=== PATIENT | female | born 1955 | race Caucasian/White ===

== ENCOUNTER 2016-06-05 05:37 | Outpatient (CLI) | payer BC, OTHER ==
[~2016-06-05] VITALS: Ht 157.5 cm; Wt 77.1 kg
[~2016-06-05 05:37] MED LIST: ASP81TEC PO; ESTROGEN; LVT.1T PO; MED FOR CHOLESTEROL; MED FOR THYROID; PRAV80TA PO; [UNRECOGNIZED DRUG - CODE] PO
== END 2016-06-05 12:01 ==
LOC: PREOP 05:37
PROVIDERS: ATTEND Surgery
DX: Z01.818 Encounter for other preprocedural examination (principal); Z86.010 Personal history of colon polyps

== ENCOUNTER 2016-06-09 10:03 | Day surgery (SDC) | payer BC ==
[~2016-06-09] VITALS: Ht 157.5 cm; Wt 77.1 kg
[2016-06-09] MEDS ORDERED: NS IV 1000 ML 1,000 ML IV PRN (10:15)
[2016-06-09] MEDS ORDERED: LIDOCAINE JELLY 2% (XYLOCAINE) 5 ML TUBE MM PRN (10:15)
[2016-06-09 10:20] VITALS: BP 125/87
[2016-06-09] MEDS ORDERED: proPOfol 200 MG/20 ML (DIPRIVAN) VIAL IV ONE (11:11)
[2016-06-09] MEDS ORDERED: MIDAZOLAM 2 MG/2 ML (VERSED) VIAL ONE (11:12)
--- NOTE | 2016-06-09 11:18 | Progress Note-Pre Operative ---
Pre-Operative Progress Note H&P Reviewed The H&P was reviewed, patient examined and no changes noted. Date H&P Reviewed: Jun 09, 2016 Time H&P Reviewed: 11:18 Pre-Operative Diagnosis: history colon polyps NARESH KRUGER DO Jun 09, 2016 11:18 am
--- NOTE | 2016-06-09 11:59 | Discharge Inst-Simple/Standard ---
Discharge Inst-Standard Patient Instructions/Follow Up Plan of Care/Instructions/FU: Follow up with Dr. Guzman in 2-3 weeks. Activity as Tolerated: Yes Discharge Diet: No Restrictions EITAN CONNER APRN Jun 09, 2016 11:59
[2016-06-09 12:25] VITALS: BP 137/82
[2016-06-09 12:45] VITALS: BP 129/89
--- NOTE | 2016-06-09 12:47 | Progress Note-Post Operative ---
Post-Operative Progess Note Surgeon (s)/Medical Resident (s) Surgeon NARESH KRUGER DO Medical Resident: o Pre-Operative Diagnosis history colon polyps Post-Operative Diagnosis colon polyps Post-Op Procedure Note Date of Procedure: Jun 09, 2016 Name of Procedure Performed: colonoscopy hot bx polypectomy x 6 Description of the Procedure: see note Findings of the Procedure see note Anesthesia Type per mda Estimated blood loss (mL): 0 Specimen(s) collected/removed colon polyps NARESH KRUGER DO Jun 09, 2016 12:47 pm
[2016-06-09 12:50] VITALS: BP 129/89
--- NOTE | 2016-06-10 10:52 | PROCEDURE REPORT ---
PROCEDURE PHYSICIAN: NARESH GUZMAN DATE OF PROCEDURE: 06/09/2016 PREOPERATIVE DIAGNOSIS: History of polyps. POSTOPERATIVE DIAGNOSIS: Colon polyps. PROCEDURE: Colonoscopy with hot biopsy polypectomy x6. SURGEON: Dr. Guzman. ANESTHESIA: Per MDA. ESTIMATED BLOOD LOSS: None. COMPLICATIONS: None. INDICATIONS: The patient is a 60-year-old female with multiple polyps previously. She understands the risks and benefits of the procedure and wished to proceed with the procedure. Consent was signed on the chart. PROCEDURE: The patient was taken to the endoscopy suite, placed in left lateral recumbent position. Timeout was performed. Digital rectal exam was performed. There were no palpable polyps, masses, or ulcerations. The scope was inserted into the rectum and advanced all the way to the cecum with minimal difficulty. Prep was adequate. The scope was then slowly retracted back. There were no polyps, masses, or ulceration of the cecum, and descending colon. At the hepatic flexure, there is a larger polyp, which hot biopsy polypectomy was performed. The scope was then slowly retracted back into the transverse colon which another polyp was present which hot biopsy polypectomy was performed. The scope was continued to be slowly retracted back into the descending colon which another polyp was present, which hot biopsy polypectomy was performed. This was smaller in size. The scope was continued to be slowly retracted back into the sigmoid colon. There was another small polyp, which hot biopsy polypectomy was performed. In the distal sigmoid colon, there were 2 polyps present which hot biopsy polypectomy was performed on both of them. The scope was continued be slowly retracted back into the rectum where it was also retroflexed noting no other pathology. The scope was then returned to its normal position and slowly withdrawn until completely removed. The patient tolerated the procedure well without any complications. She was taken to recovery room in stable condition. RECOMMENDATIONS: The patient will follow-up on pathology. Due to the large number of polyps in recurring numbers, we will discuss possible gastroenterology consultation. I would recommend repeat colonoscopy in 3 to 6 months for reevaluation due to a significant number of polyps. Job ID: [id number] Dictated Date: 06/09/2016 13:59:55 Salesperson Hosiery Date: 06/10/2016 10:44:52 / tbk
--- OUTSIDE RECORDS SUMMARY | 2016-07-12 13:46 | XMS REPORT | Continuity of Care Document ---
Author Author [facility] Organization [facility] Address Unknown Phone Unavailable Allergies Active Description Code Type Severity Reaction Onset Reported/Identified Relationship to Patient Clinical Status Yes No Known Drug Allergies [id number] Drug Allergy Unknown N/ A 05/28/2015 Medications Problems Date Dx Coded Attending Type Code Diagnosis Diagnosed By 06/14/2013 DARLENE REY FACC, ANOOP FACP CCDS Ot 272.4 HYPERLIPIDEMIA NEC/NOS 06/14/2013 DARLENE REY FACC, ANOOP FACP CCDS Ot 305.1 TOBACCO USE DISORDER 06/14/2013 DARLENE REY FACC, ANOOP FACP CCDS Ot 414.01 CORONARY ATHEROSCLEROSIS OF [place] CORON 06/14/2013 DARLENE REY FACC, ANOOP FACP CCDS Ot 786.09 RESPIRATORY ABNORM NEC 06/14/2013 DARLENE REY FACC, ANOOP FACP CCDS Ot 786.59 CHEST PAIN NEC 06/14/2013 DARLENE REY FACC, ANOOP FACP CCDS Ot V17.3 FAM HX-ISCHEM HEART DIS 06/14/2013 DARLENE REY FACC, ANOOP FACP CCDS Ot V58.69 OTH MED,LT,CURRENT USE 07/16/2014 Ot 211.3 07/16/2014 Ot 569.0 07/16/2014 Ot V16.0 07/16/2014 Ot V76.51 02/07/2015 Ot 211.3 02/07/2015 Ot 569.0 02/07/2015 Ot V16.0 02/07/2015 Ot V76.51 05/24/2015 NARESH KRUGER DO Ot Z01.818 ENCOUNTER FOR OTHER PREPROCEDURAL EXAMIN 05/27/2015 NARESH KRUGER DO Ot Z01.818 05/28/2015 Ot 211.3 05/28/2015 Ot 569.0 05/28/2015 Ot V16.0 05/28/2015 Ot V76.51 05/28/2015 Ot V72.84 05/28/2015 NARESH KRUGER DO Ot K62.1 RECTAL POLYP 05/28/2015 NARESH KRUGER DO Ot K63.5 POLYP OF COLON 05/28/2015 NARESH KRUGER DO Ot K92.1 MELENA 06/05/2016 Ot 211.3 BENIGN NEOPLASM LG BOWEL 06/05/2016 Ot 569.0 ANAL RECTAL POLYP 06/05/2016 Ot V16.0 FAMILY HX-GI MALIGNANCY 06/05/2016 Ot V76.51 SCREEN MAL NEOP-COLON 06/05/2016 Ot V72.84 EXAM PRE-OPERATIVE NOS 06/05/2016 NARESH KRUGER DO Ot Z01.818 ENCOUNTER FOR OTHER PREPROCEDURAL EXAMIN 06/05/2016 NARESH KRUGER DO Ot Z86.010 PERSONAL HISTORY OF COLONIC POLYPS 06/08/2016 NARESH KRUGER DO Ot Z01.818 ENCOUNTER FOR OTHER PREPROCEDURAL EXAMIN 06/08/2016 NARESH KRUGER DO Ot Z86.010 PERSONAL HISTORY OF COLONIC POLYPS 06/08/2016 NARESH KRUGER DO Ot Z01.818 ENCOUNTER FOR OTHER PREPROCEDURAL EXAMIN 06/08/2016 NARESH KRUGER DO Ot Z86.010 PERSONAL HISTORY OF COLONIC POLYPS 06/09/2016 NARESH KRUGER DO Ot D12.4 BENIGN NEOPLASM OF DESCENDING COLON 06/09/2016 NARESH KRUGER DO Ot K63.5 POLYP OF COLON 06/27/2016 JACKSON KELLER APRN Ot F17.210 NICOTINE DEPENDENCE, CIGARETTES, UNCOMPL 06/27/2016 JACKSON KELLER APRN Ot K76.0 FATTY (CHANGE OF) LIVER, NOT ELSEWHERE C 06/27/2016 JACKSON KELLER [employer] OPERATOR Ot R10.11 RIGHT UPPER QUADRANT PAIN 06/27/2016 JACKSON KELLER [employer] OPERATOR Ot R10.13 EPIGASTRIC PAIN 06/30/2016 Ot 211.3 BENIGN NEOPLASM LG BOWEL 06/30/2016 Ot 569.0 ANAL RECTAL POLYP 06/30/2016 Ot V16.0 FAMILY HX-GI MALIGNANCY 06/30/2016 Ot V76.51 SCREEN MAL NEOP-COLON 06/30/2016 Ot V72.84 EXAM PRE-OPERATIVE NOS 07/01/2016 EITAN CONNER APRN Ot R10.11 RIGHT UPPER QUADRANT PAIN 07/08/2016 NWAGWUEITAN APRN Ot R10.11 RIGHT UPPER QUADRANT PAIN Procedures Results Test Result Range Complete blood count (CBC) with automated white blood cell (WBC) differential - 06/27/16 12:28 Blood leukocytes automated count (number/volume) 10.4 10*3/ uL 4.3-11.0 Blood erythrocytes automated count (number/volume) 4.89 10*6 /uL 4.35-5.85 Venous blood hemoglobin measurement (mass/volume) 14.8 g/dL 11.5-16.0 Blood hematocrit (volume fraction) 44 % 35-52 Automated erythrocyte mean corpuscular volume 90 [foz_us] 80-99 Automated erythrocyte mean corpuscular hemoglobin (mass per erythrocyte) 30 pg 25-34 Automated erythrocyte mean corpuscular hemoglobin concentration measurement ( mass/volume) 34 g/dL 32-36 Automated erythrocyte distribution width ratio 14.8 % 10.0-14.5 Automated blood platelet count (count/volume) 301 10*3/uL 130-400 Automated blood platelet mean volume measurement 9.4 [foz_us ] 7.4-10.4 Automated blood neutrophils/100 leukocytes 62 % 42-75 Automated blood lymphocytes/100 leukocytes 30 % 12-44 Blood monocytes/100 leukocytes 6 % 0-12 Automated blood eosinophils/100 leukocytes 2 % 0-10 Automated blood basophils/100 leukocytes 1 % 0-10 Blood neutrophils automated count (number/volume) 6.5 10*3 1.8-7.8 Blood lymphocytes automated count (number/volume) 3.1 10*3 1.0-4.0 Blood monocytes automated count (number/volume) 0.6 10*3 0.0-1.0 Automated eosinophil count 0.2 10*3/uL 0.0-0.3 Automated blood basophil count (count/volume) 0.1 10*3/uL 0.0-0.1 Complete urinalysis with reflex to culture - 06/27/16 12:28 Urine color determination YELLOW NRG Urine clarity determination CLEAR NRG Urine pH measurement by test strip 7 5- 9 Specific gravity of urine by test strip 1.010 1.016-1.022 Urine protein assay by test strip, semi-quantitative NEGATIVE NEGATIVE Urine glucose detection by automated test strip NEGATIVE NEGATIVE Erythrocytes detection in urine sediment by light microscopy NEGATIVE NEGATIVE Urine ketones detection by automated test strip NEGATIVE NEGATIVE Urine nitrite detection by test strip NEGATIVE NEGATIVE Urine total bilirubin detection by test strip NEGATIVE NEGATIVE Urine urobilinogen measurement by automated test strip (mass/volume) NORMAL NORMAL Urine leukocyte esterase detection by dipstick NEGATIVE NEGATIVE Automated urine sediment erythrocyte count by microscopy (number/high power field) NONE NRG Automated urine sediment leukocyte count by microscopy (number/high power field ) NONE NRG Bacteria detection in urine sediment by light microscopy NEGATIVE NRG Squamous epithelial cells detection in urine sediment by light microscopy 5-10 NRG Crystals detection in urine sediment by light microscopy NONE NRG Casts detection in urine sediment by light microscopy NONE NRG Mucus detection in urine sediment by light microscopy NEGATIVE NRG Complete urinalysis with reflex to culture NO NRG Comprehensive metabolic panel - 06/27/16 13:50 Serum or plasma sodium measurement (moles/volume) 138 mmol/ L 135-145 Serum or plasma potassium measurement (moles/volume) 3.7 mmol/L 3.6-5.0 Serum or plasma chloride measurement (moles/volume) 104 mmol /L 98-107 Carbon dioxide 22 mmol/L 21-32 Serum or plasma anion gap determination (moles/volume) 12 mmol/L 5-14 Serum or plasma urea nitrogen measurement (mass/volume) 7 mg /dL 7-18 Serum or plasma creatinine measurement (mass/volume) 0.72 mg /dL 0.60-1.30 Serum or plasma urea nitrogen/creatinine mass ratio 10 NRG Serum or plasma creatinine measurement with calculation of estimated glomerular filtration rate > NRG Serum or plasma glucose measurement (mass/volume) 83 mg/dL 70-105 Serum or plasma calcium measurement (mass/volume) 8.7 mg/dL 8.5-10.1 Serum or plasma total bilirubin measurement (mass/volume) 0.4 mg/dL 0.1-1.0 Serum or plasma alkaline phosphatase measurement (enzymatic activity/volume) 79 U/L 40-136 Serum or plasma aspartate aminotransferase measurement (enzymatic activity/ volume) 22 U/L 5-34 Serum or plasma alanine aminotransferase measurement (enzymatic activity/volume ) 27 U/L 0-55 Serum or plasma protein measurement (mass/volume) 6.9 g/dL 6.4-8.2 Serum or plasma albumin measurement (mass/volume) 4.0 g/dL 3.2-4.5 Lipase - 06/27/16 13:50 Lipase 171 U/L 8-78 Encounters ACCT No. Visit Date/Time Discharge Status Pt. Type Provider Facility Loc./Unit Complaint [id number] 06/27/2016 11:54:00 2016 14:40:00 DIS Emergency JACKSON KELLER [employer] OPERATOR [facility] ER GALBLADDER PAIN [id number] 06/09/2016 10:03:00 2016 12:50:00 DIS Outpatient NARESH KRUGER DO [facility] ENDO HX POLYPS [id number] 06/05/2016 05:37:00 2016 12:01:00 DIS Outpatient KRUGER NARESH RAMON [facility] PREOP HX POLYPS [id number] 05/28/2015 08:53:00 2015 12:05:00 DIS Outpatient NARESH KRUGER DO [facility] SDC HISTORY POLPS [id number] 05/24/2015 05:39:00 2015 14:58:00 DIS Outpatient NARESH KRUGER DO [facility] PREOP HISTORY POLPS [id number] 06/13/2013 16:24:00 2013 11:35:00 DIS Outpatient DARLENE REY FACCANOOP FACP CCDS [facility] CATH CHEST PAIN [id number] 06/30/2016 06:39:00 ACT Outpatient JOSÉ MIGUEL CONNERDORE O [employer] [facility] CARD R10.11 [id number] 06/29/2016 07:45:00 PEN Preadmit NWJOSÉ MIGUEL RITTERDORE O [employer]PERATOR [facility] RAD R10.11 [id number] 05/28/2015 08:53:00 Document Registration [id number] 07/16/2014 15:15:00 Document Registration [id number] 05/10/2014 06:24:00 Document Registration
== END 2016-06-09 12:50 | disposition home or self-care (01) ==
LOC: ENDO 10:03
PROVIDERS: ATTEND Surgery
DX: D12.4 Benign neoplasm of descending colon (principal); K63.5 Polyp of colon
CPT/HCPCS: 88305

== ENCOUNTER 2016-06-27 11:52 | Emergency (ER) | payer BC ==
[~2016-06-27] VITALS: Ht 154.9 cm; Wt 76.2 kg
[2016-06-27] MEDS ORDERED: KETOROLAC 30 MG/ML VIAL IVP ONE (12:30)
[2016-06-27 12:34] LABS: BILIRUBIN,URINE NEGATIVE (NEGATIVE); KETONES,URINE NEGATIVE (NEGATIVE); LEUKOCYTE ESTERASE ,URINE NEGATIVE (NEGATIVE); NITRITE,URINE NEGATIVE (NEGATIVE); PH,URINE 7 (5-9); PROTEIN,URINE NEGATIVE (NEGATIVE); UROBILINOGEN,URINE NORMAL (NORMAL)
[2016-06-27 12:36] LABS: BASOPHILS # (AUTO) 0.1 10^3/uL (0.0-0.1); BASOPHILS % (AUTO) 1 % (0-10); EOSINOPHILS # (AUTO) 0.2 10^3/uL (0.0-0.3); EOSINOPHILS % (AUTO) 2 % (0-10); LYMPHOCYTES # (AUTO) 3.1 X 10^3 (1.0-4.0); LYMPHOCYTES % (AUTO) 30 % (12-44); MEAN CORPUSCULAR HEMOGLOBIN 30 PG (25-34); MEAN CORPUSCULAR HGB CONC 34 G/DL (32-36); MEAN CORPUSCULAR VOLUME 90 FL (80-99); MEAN PLATELET VOLUME 9.4 FL (7.4-10.4); MONOCYTES # (AUTO) 0.6 X 10^3 (0.0-1.0); MONOCYTES % (AUTO) 6 % (0-12); NEUTROPHILS # (AUTO) 6.5 X 10^3 (1.8-7.8); NEUTROPHILS % (AUTO) 62 % (42-75); PLATELET COUNT 301 10^3/uL (130-400); RED BLOOD COUNT 4.89 10^6/uL (4.35-5.85); RED CELL DISTRIBUTION WIDTH 14.8 % (10.0-14.5); WHITE BLOOD COUNT 10.4 10^3/uL (4.3-11.0)
--- NOTE | 2016-06-27 12:40 | ED Abdominal Pain ---
General Chief Complaint: Abdominal/GI Problems Stated Complaint: GALBLADDER PAIN Nursing Triage Note: TO ED AMB C/O R UPPER QUAD PAIN. FOR SEVERAL WEEKS. TO HAVE TEST DONE ON WEDNESDAY. Sepsis Screen: No Definite Risk Source of Information: Patient Exam Limitations: No Limitations History of Present Illness Time Seen By Provider: 12:38 Initial Comments To ER with epigastric and right upper quadrant abdominal pain for the past several weeks. Pain is worse this morning though she has not eaten anything today. She did have dry heaving once this morning. No bowel changes. She is passing gas. Certain foods do seem to worsen the pain. She had a colonoscopy a few weeks ago and followed up with Dr. Guzman for that period during her follow-up visit she mentioned this pain to him and he has her scheduled for an outpatient ultrasound of the gallbladder on Wednesday, June 29. She was unable to wait until then due to the pain. Timing/Duration: Getting Worse, Intermittent Severity/Quality: Moderate Location: RUQ, Epigastric Radiation: No Radiation Activities at Onset: None Associated Symptoms: Nausea/Vomiting Allergies and Home Medications Allergies Coded Allergies: No Known Drug Allergies (Verified , 05/28/15) Home Medications Estrogens,Esterified 1.25 Mg Tablet, 1.25 MG PO DAILY, (Reported) Levothyroxine Sodium 100 Mcg Tablet, 100 MCG PO DAILY, (Reported) Pravastatin Sodium 80 Mg Tablet, 100 MG PO HS, (Reported) Review of Systems Constitutional: see HPI EENTM: No Symptoms Reported Respiratory: No Symptoms Reported Cardiovascular: No Symptoms Reported Gastrointestinal: See HPI, Abdominal Pain, Nausea, Vomiting Genitourinary: No Symptoms Reported Musculoskeletal: no symptoms reported Skin: no symptoms reported Psychiatric/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: No Symptoms Reported Endocrine: No Symptoms Reported Past Rruundt-Kwvvtq-Iiylgf Hx Patient Social History Alcohol Use: Denies Use Recreational Drug Use: No Smoking Status: Current Everyday Smoker Type Used: Cigarettes Recent Foreign Travel: No Contact w/Someone Who Travel: No Recent Infectious Disease Expo: No Recent Hopitalizations: No Immunizations Up To Date Date of Influenza Vaccine: Dec 07, 2015 Surgeries HX Surgeries: Yes (left knee scope) Surgeries: Hysterectomy Respiratory Hx Respiratory Disorders: No Cardiovascular Hx Cardiac Disorders: Yes Cardiac Disorders: High Cholesterol 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 Hx 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 Disorders: 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 Genitourinary Hx Genitourinary Disorders: No Gastrointestinal Hx Gastrointestinal Disorders: No Musculoskeletal Hx Musculoskeletal Disorders: No Endocrine Hx Endocrine Disorders: No Endocrine Disorders: Hypothyroidsim HEENT HX ENT Disorders: No Cancer Hx Cancer: No Psychosocial Hx Psychiatric Problems: No Integumentary HX Skin/Integumentary Disorder: No Blood Transfusions Hx Blood Disorders: No Physical Exam Vital Signs VS - Last 72 Hours, by Label 06/27/16 12:04 Temp 97.0 Pulse 79 Resp 18 B/P (MAP) 134/97 Capillary Refill : Less Than 3 Seconds General Appearance: WD/WN, no apparent distress HEENT: PERRL/EOMI, normal ENT inspection Neck: non-tender, full range of motion Respiratory: no respiratory distress, no accessory muscle use Cardiovascular: regular rate, rhythm, no murmur Gastrointestinal: normal bowel sounds, soft, tenderness (epigastric/right upper quadrant) Extremities: normal range of motion, non-tender Neurologic/Psychiatric: alert, normal mood/affect, oriented x 3 Skin: normal color, warm/dry Progress/Results/Core Measures Results/Orders Lab Results Laboratory Tests Test 06/27/16 12:28 06/27/16 13:50 Range/Units White Blood Count 10.4 4.3-11.0 10^3/uL Red Blood Count 4.89 4.35-5.85 10^6/uL Hemoglobin 14.8 11.5-16.0 G/DL Hematocrit 44 35-52 % Mean Corpuscular Volume 90 80-99 FL Mean Corpuscular Hemoglobin 30 25-34 PG Mean Corpuscular Hemoglobin Concent 34 32-36 G/DL Red Cell Distribution Width 14.8 H 10.0-14.5 % Platelet Count 301 130-400 10^3/uL Mean Platelet Volume 9.4 7.4-10.4 FL Neutrophils (%) (Auto) 62 42-75 % Lymphocytes (%) (Auto) 30 12-44 % Monocytes (%) (Auto) 6 0-12 % Eosinophils (%) (Auto) 2 0-10 % Basophils (%) (Auto) 1 0-10 % Neutrophils # (Auto) 6.5 1.8-7.8 X 10^3 Lymphocytes # (Auto) 3.1 1.0-4.0 X 10^3 Monocytes # (Auto) 0.6 0.0-1.0 X 10^3 Eosinophils # (Auto) 0.2 0.0-0.3 10^3/uL Basophils # (Auto) 0.1 0.0-0.1 10^3/uL Urine Color YELLOW Urine Clarity CLEAR Urine pH 7 5-9 Urine Specific Alexander 1.010 L 1.016-1.022 Urine Protein NEGATIVE NEGATIVE Urine Glucose (UA) NEGATIVE NEGATIVE Urine Ketones NEGATIVE NEGATIVE Urine Nitrite NEGATIVE NEGATIVE Urine Bilirubin NEGATIVE NEGATIVE Urine Urobilinogen NORMAL NORMAL MG/DL Urine Leukocyte Esterase NEGATIVE NEGATIVE Urine RBC (Auto) NEGATIVE NEGATIVE Urine RBC NONE /HPF Urine WBC NONE /HPF Urine Squamous Epithelial Cells 5-10 /HPF Urine Crystals NONE /LPF Urine Bacteria NEGATIVE /HPF Urine Casts NONE /LPF Urine Mucus NEGATIVE /LPF Urine Culture Indicated NO Sodium Level 138 135-145 MMOL/L Potassium Level 3.7 3.6-5.0 MMOL/L Chloride Level 104 98-107 MMOL/L Carbon Dioxide Level 22 21-32 MMOL/L Anion Gap 12 5-14 MMOL/L Blood Urea Nitrogen 7 7-18 MG/DL Creatinine 0.72 0.60-1.30 MG/DL Estimat Glomerular Filtration Rate > 60 BUN/Creatinine Ratio 10 Glucose Level 83 70-105 MG/DL Calcium Level 8.7 8.5-10.1 MG/DL Total Bilirubin 0.4 0.1-1.0 MG/DL Aspartate Amino Transf (AST/SGOT) 22 5-34 U/L Alanine Aminotransferase (ALT/SGPT) 27 0-55 U/L Alkaline Phosphatase 79 40-136 U/L Total Protein 6.9 6.4-8.2 G/DL Albumin 4.0 3.2-4.5 G/DL Lipase 171 H 8-78 U/L Susy Hennessy - JACKSON KELLER RUG TOUCH UP PAINTER Cbc With Automated Diff (06/27/16 11:57) Comprehensive Metabolic Panel (06/27/16 11:57) Lipase (06/27/16 11:57) Ua Culture If Indicated (06/27/16 11:57) Saline Lock/Iv-Start (06/27/16 11:57) Ketorolac Injection (Toradol Injection) (06/27/16 12:30) Ct Abdomen/Pelvis W (06/27/16 12:58) Antacid Suspension (Mylanta Suspension (06/27/16 13:00) Lidocaine 2% Viscous 15 Ml (Xylocaine Vi (06/27/16 13:00) Iohexol Injection (Omnipaque 350 Mg/Ml 1 (06/27/16 13:15) Ns (Ivpb) (Sodium Chloride 0.9% Ivpb Bag (06/27/16 13:15) Us Gallbladder 63693 (06/27/16 ) Us Gallbladder 74122 (06/27/16 ) Medications Given in ED Current Medications Medications Dose Ordered Sig/Claudia Route Start Time Stop Time Status Last Admin Dose Admin Iohexol 100 ml ONCE ONCE IV 06/27/16 13:15 06/27/16 13:16 DC 06/27/16 13:14 100 ML Ketorolac Tromethamine 30 mg ONCE ONCE IVP 06/27/16 12:30 06/27/16 12:31 DC 06/27/16 12:32 30 MG Sodium Chloride 100 ml ONCE ONCE IV 06/27/16 13:15 06/27/16 13:16 DC 06/27/16 13:15 80 ML Vital Signs/I&O Vital Sign - Last 12Hours 06/27/16 12:04 Temp 97.0 Pulse 79 Resp 18 B/P (MAP) 134/97 Blood Pressure Mean: 109 Diagnostic Imaging Diagonstic Imaging: CT Comments NAME: TAYLOR ALEXANDRE MED REC#: [id number] PT STATUS: REG ER : 1955 PHYSICIAN: JACKSON KELLER APRN ADMIT DATE: 06/27/16/ER Draft Date of Exam:06/27/16 CT ABDOMEN/PELVIS W PROCEDURE: CT abdomen and pelvis with contrast. TECHNIQUE: Multiple contiguous axial images were obtained through the abdomen and pelvis after administration of intravenous contrast. INDICATION: Epigastric pain. FINDINGS: The lung bases are clear. There is fatty infiltration of liver. The gallbladder is present. Pancreas appears normal. Spleen is unremarkable. Adrenals are normal. Kidneys are normal. Small bowel is not dilated. Colon appears normal. Uterus is surgically absent. There is no intraperitoneal free air or free fluid. Appendix is normal. IMPRESSION: Hepatic steatosis. No acute abnormality is seen in the abdomen or pelvis. Dictated on workstation # [id number] Dict: 06/27/16 1333 Trans: 06/27/16 1337 [id number] Interpreted by: MANUEL REA Electronically signed by: Departure Impression Impression: Primary Impression: Epigastric pain Disposition: 01 HOME, SELF-CARE Condition: Stable Departure-Patient Inst. Decision time for Depature: 14:25 Referrals: KARTHIKEYAN SULLIVAN MD (PCP) Primary Care Physician Patient Instructions: Acute Abdomen (Belly Pain), Adult (DC) Add. Discharge Instructions: 1. Clear liquids only for the next 24 hours 2. Return to ER for any worsening pain, uncontrollable vomiting or other concerns 3. Call via [facility] at [phone] on Wednesday morning at 8 a.m. and ask for the radiology scheduling department. They will be able to tell you when to arrive for a HIDA scan. 4. All discharge instructions reviewed with patient and/or family. Voiced understanding. Scripts Ondansetron (Zofran Odt) 4 Mg Tab.rapdis 4 MG PO Q4H, #14 TAB Prov: JACKSON KELLER APRN 06/27/16 Hydrocodone/Acetaminophen (Gateway 5-325 Tablet) 1 Each Tablet 1 EACH PO Q6H, #14 TAB Prov: JACKSON KELLER APRN 06/27/16 JACKSON KELLER APRN Jun 27, 2016 12:40
[2016-06-27] MEDS ORDERED: ANTACID SUSP 30 ML UDC (MYLANTA) PO ONE (13:00)
[2016-06-27] MEDS ORDERED: LIDOCAINE 2% VISCOUS 15 ML UDC PO ONE (13:00)
[2016-06-27] MEDS ORDERED: NS 100 ML (IVPB) BAG IV ONE (13:15)
[2016-06-27] MEDS ORDERED: IOHEXOL 350 MG/ML 100 ML (OMNIPAQUE 350) VIAL IV ONE (13:15)
--- NOTE | 2016-06-27 13:35 | Diagnostic Imaging Report ---
PROCEDURE: US Gallbladder. TECHNIQUE: Multiple real-time grayscale images were obtained over the right upper quadrant in various projections. INDICATION: Right-sided abdominal pain. FINDINGS: There is increased echogenicity demonstrated of the liver compatible with underlying steatosis. There is no focal intrahepatic abnormality or evidence of intrahepatic biliary dilatation. The gallbladder is nondistended. No gallstones evident. There is no gallbladder wall thickening or pericholecystic fluid. The common bile duct is normal in caliber The pancreas is not well visualized due to overlying bowel gas. Right kidney appears nonobstructed. No ascites is evident. IMPRESSION: 1. Hepatic steatosis without evidence of focal intrahepatic abnormality. 2. No evidence of cholelithiasis or acute cholecystitis. 3. The pancreas cannot be visualized. 4. No ascites demonstrated. Dictated by: Dictated on workstation # [id number]
--- NOTE | 2016-06-27 13:37 | Diagnostic Imaging Report ---
PROCEDURE: CT abdomen and pelvis with contrast. TECHNIQUE: Multiple contiguous axial images were obtained through the abdomen and pelvis after administration of intravenous contrast. INDICATION: Epigastric pain. FINDINGS: The lung bases are clear. There is fatty infiltration of liver. The gallbladder is present. Pancreas appears normal. Spleen is unremarkable. Adrenals are normal. Kidneys are normal. Small bowel is not dilated. Colon appears normal. Uterus is surgically absent. There is no intraperitoneal free air or free fluid. Appendix is normal. IMPRESSION: Hepatic steatosis. No acute abnormality is seen in the abdomen or pelvis. Dictated by: Dictated on workstation # [id number]
[2016-06-27 14:16] LABS: ALANINE AMINOTRANSFERASE 27 U/L (0-55); ANION GAP 12 MMOL/L (5-14); ASPARTATE AMINO TRANSFERASE 22 U/L (5-34); BILIRUBIN,TOTAL 0.4 MG/DL (0.1-1.0); BLOOD UREA NITROGEN 7 MG/DL (7-18); BUN/CREATININE RATIO 10; CALCIUM 8.7 MG/DL (8.5-10.1); CARBON DIOXIDE 22 MMOL/L (21-32); CHLORIDE 104 MMOL/L (98-107); CREATININE SERUM 0.72 MG/DL (0.60-1.30); GFR ESTIMATED > 60; GLUCOSE 83 MG/DL (70-105); LIPASE 171 U/L (8-78); POTASSIUM 3.7 MMOL/L (3.6-5.0); SODIUM 138 MMOL/L (135-145); TOTAL PROTEIN 6.9 G/DL (6.4-8.2)
[2016-06-27] MEDS ORDERED: ONDA4TAB8 PO (14:28)
[2016-06-27] MEDS ORDERED: HYDR-757 PO (14:28)
[2016-06-27 14:35] VITALS: BP 123/83
== END 2016-06-27 14:40 | disposition home or self-care (01) ==
LOC: EDUNIT# 11:52 → ER 11:54
DX: R10.13 Epigastric pain (principal); K76.0 Fatty (change of) liver, not elsewhere classified; F17.210 Nicotine dependence, cigarettes, uncomplicated
CPT/HCPCS: 36415; 74177; 76705; 80053; 81000; 83690; 85025; 96374

== ENCOUNTER → 2016-06-30 | Outpatient (CLI) | payer BC ==
[~2016-06-30] MED LIST changes: +CATHETER FLUSH 10 ML SYR IV PRN; +HYDR-757 PO; +ONDA4TAB8 PO
--- NOTE | 2016-06-30 10:31 | Diagnostic Imaging Report ---
EXAMINATION: HIDA with EF measurements Indication: Abdominal pain TECHNIQUE: After the intravenous administration of 5 mCi of Tc 99m Choletec, imaging over the abdomen was obtained. This was followed by administration of Ensure orally to stimulate intrinsic CCK secretion, followed by continued imaging with ejection fraction measured. FINDINGS: There is homogeneous uptake in the liver with prompt bile duct and gallbladder filling seen. Bowel activity is seen at 15 minutes. Based on further imaging and gallbladder area of interest activity measurements after the administration of Ensure, the gallbladder ejection fraction is estimated at 32%. IMPRESSION: 1. Normal hepatobiliary uptake and Gallbladder filling. 2. Biliary dyskinesia. Decreased gallbladder ejection fraction. Dictated by: Dictated on workstation # [id number]
== END ==
LOC: CARD 06:39
PROVIDERS: ATTEND Nurse Practitioner
DX: R10.11 Right upper quadrant pain (principal)
CPT/HCPCS: 78227

== ENCOUNTER 2016-07-27 08:59 | Outpatient (CLI) | payer BC ==
[~2016-07-27] VITALS: Ht 154.9 cm; Wt 74.8 kg
[~2016-07-27 08:59] MED LIST changes: -CATHETER FLUSH 10 ML SYR IV PRN
[2016-07-27] MEDS ORDERED: PRAV20TA3 PO (09:09)
[2016-07-27 09:13] VITALS: BP 121/81
[2016-07-27 09:39] LABS: BASOPHILS % (AUTO) 0 % (0-10); EOSINOPHILS # (AUTO) 0.1 10^3/uL (0.0-0.3); EOSINOPHILS % (AUTO) 2 % (0-10); LYMPHOCYTES # (AUTO) 2.6 X 10^3 (1.0-4.0); LYMPHOCYTES % (AUTO) 33 % (12-44); MEAN CORPUSCULAR HEMOGLOBIN 30 PG (25-34); MEAN CORPUSCULAR HGB CONC 33 G/DL (32-36); MEAN CORPUSCULAR VOLUME 90 FL (80-99); MEAN PLATELET VOLUME 9.9 FL (7.4-10.4); MONOCYTES # (AUTO) 0.6 X 10^3 (0.0-1.0); MONOCYTES % (AUTO) 7 % (0-12); NEUTROPHILS # (AUTO) 4.7 X 10^3 (1.8-7.8); NEUTROPHILS % (AUTO) 58 % (42-75); PLATELET COUNT 278 10^3/uL (130-400); RED BLOOD COUNT 4.67 10^6/uL (4.35-5.85)
== END 2016-07-27 10:45 | disposition home or self-care (01) ==
LOC: PREOP 08:59
PROVIDERS: ATTEND Surgery
DX: Z01.812 Encounter for preprocedural laboratory examination (principal); Z11.2 Encounter for screening for other bacterial diseases; K82.8 Other specified diseases of gallbladder
CPT/HCPCS: 36415; 85025; 87081

== ENCOUNTER 2016-07-30 07:14 | Day surgery (SDC) | payer BC ==
[~2016-07-30] VITALS: Ht 154.9 cm; Wt 74.8 kg
[~2016-07-30 07:14] MED LIST changes: +PRAV20TA3 PO
[2016-07-30] MEDS ORDERED: ceFAZolin 2 GM/NS 50 ML IV ONE (07:45)
[2016-07-30 07:54] VITALS: BP 120/77
[2016-07-30] MEDS ORDERED: BUPIVACAINE 0.5% 30 ML (SENSORCAINE) VIAL ONE (07:54)
[2016-07-30] MEDS ORDERED: LIDOCAINE 1% INJ 20 ML (XYLOCAINE) VIAL ONE (07:54)
--- NOTE | 2016-07-30 07:54 | Progress Note-Pre Operative ---
Pre-Operative Progress Note H&P Reviewed The H&P was reviewed, patient examined and no changes noted. Date H&P Reviewed: July 30, 2016 Time H&P Reviewed: 07:54 Pre-Operative Diagnosis: biliary dyskinesia NARESH KRUGER DO July 30, 2016 7:54 am
[2016-07-30] MEDS ORDERED: MIDAZOLAM 2 MG/2 ML (VERSED) VIAL IV ONE (08:00)
[2016-07-30] MEDS: LACTATED RINGERS 1,000 ML IV PRN ×2 (08:01→09:20)
[2016-07-30] MEDS ORDERED: proPOfol 200 MG/20 ML (DIPRIVAN) VIAL IV ONE (08:43)
[2016-07-30] MEDS ORDERED: SEVOFLURANE (ULTANE) 15 ML INHAL SOLN ONE ×3 (08:43→10:03)
[2016-07-30] MEDS ORDERED: LACTATED RINGERS 1,000 ML IV ONE ×2 (08:43→09:54)
[2016-07-30] MEDS ORDERED: LIDOCAINE PF 2% 10 ML (XYLOCAINE) AMP ONE (08:43)
[2016-07-30] MEDS ORDERED: ROCURONIUM 50 MG/5 ML (ZEMURON) VIAL IV ONE (08:43)
[2016-07-30] MEDS ORDERED: MIDAZOLAM 2 MG/2 ML (VERSED) VIAL ONE (08:44)
[2016-07-30] MEDS ORDERED: fentaNYL INJECTION 100 MCG/2 ML AMP ONE ×2 (08:44→09:36)
[2016-07-30] MEDS ORDERED: ONDANSETRON 4 MG/2 ML (SDV) Z0FRAN ONE ×2 (08:46→10:33)
[2016-07-30] MEDS ORDERED: DEXAMETHASONE PF 10 MG/ML (DECADRON) VIAL ONE ×2 (08:46→09:54)
[2016-07-30] MEDS ORDERED: NEOSTIGMINE (BLOXIVERZ ) 1 MG/1ML 10 ML VIAL ONE (09:48)
[2016-07-30] MEDS ORDERED: GLYCOPYRROLATE 0.2 MG/ML (ROBINUL) 2 ML VIAL ONE (09:48)
--- NOTE | 2016-07-30 10:04 | Progress Note-Post Operative ---
Post-Operative Progess Note Surgeon (s)/Water Treatment Plant Engineer (s) Surgeon NARESH KRUGER DO Water Treatment Plant Engineer: Dr. Honeycutt Pre-Operative Diagnosis Biliary Dyskinesia Post-Operative Diagnosis same Procedure & Operative Findings Date of Procedure 07/30/16 Procedure Performed/Findings lap arnoldo c ioc Anesthesia Type general Estimated Blood Loss Estimated blood loss (mL): minimal Specimens/Packing Specimens Removed gallbladder NARESH KRUGER DO July 30, 2016 10:04 am
[2016-07-30] MEDS ORDERED: DOCU-143 PO (10:25)
[2016-07-30] MEDS ORDERED: HYDR-3812 PO (10:25)
--- NOTE | 2016-07-30 10:27 | Discharge Inst-Simple/Standard ---
Discharge Inst-Standard Discharge Medications New, Converted or Re-Newed RX: RX on Chart Patient Instructions/Follow Up Plan of Care/Instructions/FU: Follow up with Dr. Guzman in 2 weeks Take medication as directed. Activity as Tolerated: No Discharge Diet: No Restrictions Other Inst to Patient Follow up Appt: Make appointment for 2 weeks. Instructions: No lifting greater than 10 pounds. No strenuous activity. May shower in 24 hours, no tub bath or soaking. Use incentive spirometer at home as directed. No Smoking Skin/Wound Care: May remove bandages. You need to leave the white strips over incision on they will fall off on their own. Symptoms to Report: Appetite Changes, Extremity Discoloration, Numbness/Tingling, Swelling Increased , Bleeding Excessive, Eyesight Changes, Pain Increased, Urine Color Change, Constipation(Persistent), Fever over 101 degree F, Pain/Pressure in chest, Urinating Difficulty, Cough Up/Vomit Blood, Heart Beat Irreg/Pounding, Pain/ Pressure in jaw, Vaginal Bleeding Increase, Cramps in feet or legs, Lightheadedness, Pain/Pressure in shoulder, Diarrhea(Persistent), Memory Changes Suddenly, Questions/Concerns, Weight gain consecutive days, Dizziness/ Fainting, Nausea/Vomiting, Shortness of Breath, Weight gain over 2 pounds. If eyes or skin turn yellow notify physician. If questions or concerns contact your physician Or seek help at emergency department. EITAN CONNER APRN July 30, 2016 10:27 am
[2016-07-30] MEDS ORDERED: ONDANSETRON 4 MG/2 ML (SDV) Z0FRAN IVP PRN (10:30)
[2016-07-30] MEDS ORDERED: HYDROmorphone (DILAUDID) 2 MG/ML VIAL IVP PRN (10:30)
[2016-07-30] MEDS ORDERED: HYDROmorphone (DILAUDID) 2 MG/ML VIAL ONE (10:32)
[2016-07-30] MEDS ORDERED: morphine INJ 10 MG/ML 1ML (SYR OR VIAL) ONE (10:33)
[2016-07-30] MEDS: morphine INJ 10 MG/ML 1ML (SYR OR VIAL) IVP PRN ×2 (10:41→10:46)
[2016-07-30 11:17] VITALS: BP 131/87
--- NOTE | 2016-07-30 11:29 | OPERATIVE REPORT ---
DATE OF SERVICE: 07/30/2016 PREOPERATIVE DIAGNOSIS: Biliary dyskinesia. POSTOPERATIVE DIAGNOSIS: Biliary dyskinesia. PROCEDURE: Laparoscopic cholecystectomy with intraoperative cholangiogram. SURGEON: Thomas POT SANDER: Dr. Honeycutt, assisted in retraction, dissection and closure. ANESTHESIA: General. ESTIMATED BLOOD LOSS: Minimal. COMPLICATIONS: None. INDICATIONS: The patient is a 60-year-old female with right upper quadrant abdominal pain. She had a workup consisting of ultrasound and a HIDA scan, HIDA demonstrating lower ejection fraction consistent with biliary dyskinesia. She understands risks and benefits of procedure and wished to proceed with procedure. Consent was signed and on the chart. PROCEDURE: The patient was taken to the operating suite. She was prepped and draped in sterile fashion. Surgical pause was performed. A local anesthetic was infiltrated just superior to the umbilicus. A 12 mm incision made and dissection was taken down to the fascia, which was then scored and then grasped with Kochers and elevated and the abdomen was then entered. An 0 Vicryl suture was placed in [id number] fashion at the fascia and a balloon trocar was then inserted. Pneumoperitoneum was achieved. Under direct visualization with the laparoscope, a 5 mm trocar was placed in the subxiphoid region, a 5 mm trocar was placed in the right upper quadrant and a 2.5 mm trocar was placed in the right upper quadrant. The gallbladder had multiple adhesions to it, which were then taken down with [place] and scissor cautery. Once the gallbladder was elevated, the cystic duct and cystic artery were then dissected out. Clips were placed along the proximal and distal portion of the cystic artery and this was then transected. The cystic artery was dissected out. A clip was placed on the distal portion of the cystic duct. The cystic duct was then partially transected. Arrow catheter was inserted into the duct and cholangiogram was then performed. There were no filling defects. Contrast made its way into the duodenum without difficulty. The catheter was then removed. Clips were placed on the proximal portion of the cystic duct and then the duct was then transected. Hook cautery was used to dissect the gallbladder from the gallbladder fossa, achieving hemostasis. A small hole was made in the gallbladder releasing a little bit of bile. Once removed, it was placed in an Endobag and removed through the 12 mm trocar site. Copious amount of irrigation was used to irrigate the abdomen. Hemostasis had been achieved. The abdomen was then desufflated. The trocars were removed. The fascial defect, with the 0 Vicryl suture that was placed, was closed. Wounds were then irrigated. Skin was then closed using 4-0 Vicryl in a subcuticular fashion. The area was then washed and dried. Mastisol and Steri-Strips were applied. Sterile bandages were applied. The patient tolerated the procedure well without any complications. She was taken to the recovery room in stable condition. Job ID: [id number] DocumentID: [id number] Dictated Date: 07/30/2016 10:23:31 Filter Press Tender Date: 07/30/2016 11:29:14 Dictated By: NARESH KRUGER DO
[2016-07-30 11:47] VITALS: BP 135/83
[2016-07-30 12:17] VITALS: BP 123/79
--- NOTE | 2016-07-30 18:18 | Diagnostic Imaging Report ---
EXAMINATION: Intraoperative cholangiogram. Laparoscopic cholecystectomy was performed by Dr. Guzman. 5 cc of Omnipaque 300 was utilized. INDICATION: Abdominal pain. FLUOROSCOPY TIME: 17 seconds of fluoroscopy time was provided. FINDINGS: Injection through the cystic duct demonstrates some extravasation at the injection site. The cystic duct and CBD with central intrahepatic ducts are opacified demonstrating normal caliber and with no evidence of filling defects or from obstruction. Prompt filling of the second portion of the duodenum is seen. Smooth tapering in the distal duct is seen compatible with the normal narrowing typically seen in the intrapancreatic portion, distally. IMPRESSION: No evidence of CBD stone or duct obstruction. Dictated by: Dictated on workstation # [id number]
== END 2016-07-30 12:42 | disposition home or self-care (01) ==
LOC: SDC 07:14
PROVIDERS: ATTEND Surgery
DX: K81.1 Chronic cholecystitis (principal); E78.5 Hyperlipidemia, unspecified; E03.9 Hypothyroidism, unspecified; F17.210 Nicotine dependence, cigarettes, uncomplicated; Z79.899 Other long term (current) drug therapy
CPT/HCPCS: 88304; 94664

== ENCOUNTER 2017-06-16 11:00 | Outpatient (CLI) | payer BC ==
[~2017-06-16] VITALS: Ht 154.9 cm; Wt 74.8 kg
[~2017-06-16 11:00] MED LIST changes: +ACHD5005 PO; +DOCU-143 PO; +LEVO100T7 PO; +SOY155CA PO
== END 2017-06-16 11:32 ==
LOC: PREOP 11:00
PROVIDERS: ATTEND Surgery
DX: Z01.818 Encounter for other preprocedural examination (principal); Z86.010 Personal history of colon polyps

== ENCOUNTER 2017-06-22 07:20 | Day surgery (SDC) | payer BC ==
[~2017-06-22] VITALS: Ht 154.9 cm; Wt 74.8 kg
[2017-06-22] MEDS ORDERED: LACTATED RINGERS 1,000 ML IV STA (07:34)
[2017-06-22 07:46] VITALS: BP 123/92
[2017-06-22] MEDS ORDERED: PROPOFOL INJECTION 50 ML IV ONE (08:38)
[2017-06-22] MEDS ORDERED: MIDAZOLAM 2 MG/2 ML (VERSED) VIAL ONE (08:38)
--- NOTE | 2017-06-22 09:14 | Progress Note-Pre Operative ---
Pre-Operative Progress Note H&P Reviewed The H&P was reviewed, patient examined and no changes noted. Date Seen by Provider: Jun 22, 2017 Time Seen by Provider: 09:14 Date H&P Reviewed: Jun 22, 2017 Time H&P Reviewed: 09:14 Pre-Operative Diagnosis: history of polyps NARESH KRUGER DO Jun 22, 2017 09:14
[2017-06-22] MEDS ORDERED: proPOfol 200 MG/20 ML (DIPRIVAN) VIAL IV ONE (09:55)
[2017-06-22 10:25] VITALS: BP 91/54
--- NOTE | 2017-06-22 10:27 | Progress Note-Post Operative ---
Post-Operative Progess Note Surgeon (s)/Furniture Finisher Helper (s) Surgeon NARESH KRUGER DO Furniture Finisher Helper: na Pre-Operative Diagnosis history of polyps Post-Operative Diagnosis colon polyps Procedure & Operative Findings Date of Procedure 06/22/17 Procedure Performed/Findings colonoscopy with hot bx polypectomy x 5 Anesthesia Type per street light servicer supervisor Estimated Blood Loss Estimated blood loss (mL): none Specimens/Packing Specimens Removed colon polyps NARESH KRUGER DO Jun 22, 2017 10:27
--- NOTE | 2017-06-22 10:29 | Discharge Inst-Simple/Standard ---
Discharge Inst-Standard Patient Instructions/Follow Up Plan of Care/Instructions/FU: 2 weeks Thomas Activity as Tolerated: Yes Discharge Diet: Regular Diet NARESH KRUGER DO Jun 22, 2017 10:29
[2017-06-22 10:50] VITALS: BP 123/84
[2017-06-22 11:05] VITALS: BP 123/84
--- NOTE | 2017-06-22 19:37 | OPERATIVE REPORT ---
DATE OF SERVICE: 06/22/2017 PREOPERATIVE DIAGNOSIS: History of polyps. POSTOPERATIVE DIAGNOSIS: Colon polyps. PROCEDURE: Colonoscopy with hot biopsy polypectomy x5. SURGEON: Naresh Guzman DO ANESTHESIA: Per TIMBER PACKER. ESTIMATED BLOOD LOSS: None. COMPLICATIONS: None. INDICATIONS: The patient is a 61-year-old female due for reevaluation due to multiple colon polyps. She understands risks and benefits of procedure and wished to proceed with the procedure. Consent was signed in the chart. DESCRIPTION OF PROCEDURE: The patient was taken to the endoscopy suite, placed in left lateral recumbent position. Timeout was performed. Digital rectal exam was performed. There were no palpable polyps, mass or ulcerations. The scope was inserted in the rectum and advanced all the way to the cecum with minimal difficulty. Prep was adequate. Scope was slowly retracted back. There was no pulse, mass, ulcerations within the cecum and ascending colon. The hepatic flexure larger polyp was present, which I biopsied. Polypectomy was performed. Scope was then continued slowly retracted back. There were 2 polyps within the transverse colon, which hot biopsy polypectomy was performed. Scope was continued to be slowly retracted back. There were no polyps, mass or ulcerations within the descending colon. Within the sigmoid colon, other small polyp was present, which hot biopsy polypectomy was performed. Further down near the rectosigmoid area, there were multiple small hyperplastic appearing polyps, which were fulgurated. Scope was continuously retracted back into the rectum, where it was also retroflexed noting no other pathology. Scope was returned to its normal position, slowly withdrawn until completely removed. RECOMMENDATIONS: The patient due to multiple polyps would benefit from repeat endoscopy in approximately 6 months. Likely benefit from reevaluation with punch operator since multiple polyps were present. Further workup was recommended previously from punch operator, Dr. Gomez. We will have her follow up with him on an outpatient basis. Job ID: [id number] DocumentID: [id number] Dictated Date: 06/22/2017 15:49:22 Public Transit Specialist Date: 06/22/2017 19:37:08 Dictated By: NARESH GUZMAN DO
== END 2017-06-22 11:00 | disposition home or self-care (01) ==
LOC: ENDO 07:20
PROVIDERS: ATTEND Surgery
DX: Z09 Encounter for follow-up examination after completed treatment for conditions other than malignant neoplasm (principal); K63.5 Polyp of colon; Z86.010 Personal history of colon polyps; I25.10 Atherosclerotic heart disease of native coronary artery without angina pectoris; E03.9 Hypothyroidism, unspecified; E78.5 Hyperlipidemia, unspecified; F17.210 Nicotine dependence, cigarettes, uncomplicated; Z79.02 Long term (current) use of antithrombotics/antiplatelets; Z79.82 Long term (current) use of aspirin; Z79.899 Other long term (current) drug therapy
CPT/HCPCS: 88305

== ENCOUNTER 2017-10-03 12:16 | Emergency (ER) | payer BC ==
[~2017-10-03] VITALS: Ht 154.9 cm; Wt 74.8 kg
--- NOTE | 2017-10-03 12:28 | ED Abdominal Pain ---
General Stated Complaint: RIGHT SIDE ABD PAIN Source of Information: Patient Exam Limitations: No Limitations History of Present Illness Date Seen by Provider: Oct 03, 2017 Time Seen by Provider: 12:26 Initial Comments To ER per private vehicle with c/o RLQ abdominal pain. This began yesterday. No known cause. No dysuria. No bowel changes. She has had some nausea but no vomiting. No fevers or chills. Timing/Duration: 1-2 Days Severity/Quality: Moderate Location: RLQ Radiation: No Radiation Activities at Onset: None Associated Symptoms: Nausea/Vomiting Allergies and Home Medications Allergies Coded Allergies: No Known Drug Allergies (Verified , 06/16/17) Home Medications Docusate Sodium 100 Mg Capsule, 100 MG PO BID Prescribed by: EITAN MORGAN on 07/30/16 1025 Levothyroxine Sodium 100 Mcg Tablet, 100 MCG PO DAILY, (Reported) Pravastatin Sodium 20 Mg Tablet, 20 MG PO DAILY, (Reported) Soy Isofla/Blk Cohosh/Mag Bark 155 Mg Capsule, 155 MG PO DAILY, (Reported) Patient Home Medication List Home Medication List Reviewed: Yes Review of Systems Constitutional: see HPI; No chills, No fever EENTM: No Symptoms Reported Respiratory: No Symptoms Reported Cardiovascular: No Symptoms Reported Gastrointestinal: See HPI, Abdominal Pain; Denies Constipated, Denies Diarrhea ; Nausea; Denies Vomiting Genitourinary: No Symptoms Reported; Denies Burning, Denies Discharge, Denies Frequency, Denies Flank Pain Musculoskeletal: no symptoms reported Skin: no symptoms reported Psychiatric/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: No Symptoms Reported Endocrine: No Symptoms Reported Hematologic/Lymphatic: No Symptoms Reported Past Qjpwxik-Czzsxc-Wicogc Hx Patient Social History Type Used: Cigarettes Recent Foreign Travel: No Contact w/Someone Who Travel: No Recent Hopitalizations: No Immunizations Up To Date Tetanus Booster (TDap): Unknown Date of Influenza Vaccine: Dec 21, 2016 Seasonal Allergies Seasonal Allergies: No Past Medical History Gallbladder, Hysterectomy High Cholesterol Headaches /Migraines 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 0.0oz. 74.491488vg; 31.2 BMI Method:Stated General Appearance: WD/WN, no apparent distress HEENT: PERRL/EOMI, normal ENT inspection Neck: non-tender, full range of motion Respiratory: no respiratory distress, no accessory muscle use Cardiovascular: regular rate, rhythm, no murmur Gastrointestinal: normal bowel sounds, soft; No distended, No guarding, No rebound; tenderness (RLQ) Neurologic/Psychiatric: alert, normal mood/affect, oriented x 3 Skin: normal color, warm/dry Progress/Results/Core Measures Results/Orders Lab Results Laboratory Tests Test 10/03/17 12:23 10/03/17 12:26 Range/Units White Blood Count 10.3 4.3-11.0 10^3/uL Red Blood Count 5.04 4.35-5.85 10^6/uL Hemoglobin 15.1 11.5-16.0 G/DL Hematocrit 45 35-52 % Mean Corpuscular Volume 89 80-99 FL Mean Corpuscular Hemoglobin 30 25-34 PG Mean Corpuscular Hemoglobin Concent 34 32-36 G/DL Red Cell Distribution Width 14.6 H 10.0-14.5 % Platelet Count 297 130-400 10^3/uL Mean Platelet Volume 9.2 7.4-10.4 FL Neutrophils (%) (Auto) 55 42-75 % Lymphocytes (%) (Auto) 35 12-44 % Monocytes (%) (Auto) 8 0-12 % Eosinophils (%) (Auto) 2 0-10 % Basophils (%) (Auto) 1 0-10 % Neutrophils # (Auto) 5.7 1.8-7.8 X 10^3 Lymphocytes # (Auto) 3.6 1.0-4.0 X 10^3 Monocytes # (Auto) 0.8 0.0-1.0 X 10^3 Eosinophils # (Auto) 0.2 0.0-0.3 10^3/uL Basophils # (Auto) 0.1 0.0-0.1 10^3/uL Sodium Level 142 135-145 MMOL/L Potassium Level 3.8 3.6-5.0 MMOL/L Chloride Level 107 98-107 MMOL/L Carbon Dioxide Level 24 21-32 MMOL/L Anion Gap 11 5-14 MMOL/L Blood Urea Nitrogen 8 7-18 MG/DL Creatinine 0.72 0.60-1.30 MG/DL Estimat Glomerular Filtration Rate > 60 BUN/Creatinine Ratio 11 Glucose Level 81 70-105 MG/DL Calcium Level 9.7 8.5-10.1 MG/DL Total Bilirubin 0.4 0.1-1.0 MG/DL Aspartate Amino Transf (AST/SGOT) 22 5-34 U/L Alanine Aminotransferase (ALT/SGPT) 31 0-55 U/L Alkaline Phosphatase 78 40-136 U/L Total Protein 7.8 6.4-8.2 GM/DL Albumin 4.6 H 3.2-4.5 GM/DL Urine Color YELLOW Urine Clarity CLEAR Urine pH 8 5-9 Urine Specific [place] 1.010 L 1.016-1.022 Urine Protein NEGATIVE NEGATIVE Urine Glucose (UA) NEGATIVE NEGATIVE Urine Ketones NEGATIVE NEGATIVE Urine Nitrite NEGATIVE NEGATIVE Urine Bilirubin NEGATIVE NEGATIVE Urine Urobilinogen NORMAL NORMAL MG/DL Urine Leukocyte Esterase NEGATIVE NEGATIVE Urine RBC (Auto) NEGATIVE NEGATIVE Urine RBC NONE /HPF Urine WBC NONE /HPF Urine Squamous Epithelial Cells 0-2 /HPF Urine Crystals NONE /LPF Urine Bacteria NEGATIVE /HPF Urine Casts NONE /LPF Urine Mucus NEGATIVE /LPF Urine Culture Indicated NO My Orders Orders - JACKSON KELLER APRN Cbc With Automated Diff (10/03/17 12:19) Comprehensive Metabolic Panel (10/03/17 12:19) Iv Heplock-Insert (Order) (10/03/17 12:19) Ua Culture If Indicated (10/03/17 12:19) Ketorolac Injection (Toradol Injection) (10/03/17 12:30) Ondansetron Injection (Zofran Injectio (10/03/17 12:30) Ct Abd/Pelv W (Appendicitis) (10/03/17 12:48) Iohexol Injection (Omnipaque 350 Mg/Ml 1 (10/03/17 13:00) Ns (Ivpb) (Sodium Chloride 0.9% Ivpb Bag (10/03/17 13:00) Medications Given in ED Current Medications Medications Dose Ordered Sig/Claudia Route Start Time Stop Time Status Last Admin Dose Admin Iohexol 100 ml ONCE ONCE IV 10/03/17 13:00 10/03/17 13:10 DC 10/03/17 13:08 100 ML Ketorolac Tromethamine 15 mg ONCE ONCE IVP 10/03/17 12:30 10/03/17 12:31 DC 10/03/17 12:32 15 MG Ondansetron HCl 4 mg ONCE ONCE IVP 10/03/17 12:30 10/03/17 12:31 DC 10/03/17 12:32 4 MG Sodium Chloride 100 ml ONCE ONCE IV 10/03/17 13:00 10/03/17 13:10 DC 10/03/17 13:08 100 ML Vital Signs/I&O 10/03/17 10/03/17 12:20 14:02 Temp 97.1 Pulse 85 67 Resp 15 20 B/P (MAP) 176/127 (143) 153/97 Pulse Ox 94 O2 Delivery Room Air Room Air Diagnostic Imaging Diagonstic Imaging: CT Comments NAME: BALDOMEROTAYLOR A MED REC#: [id number] PT STATUS: REG ER : 1955 PHYSICIAN: JACKSON KELLER APRN ADMIT DATE: 10/03/17/ER Draft Date of Exam:10/03/17 CT ABD/PELV W (APPENDICITIS) PROCEDURE: CT abdomen and pelvis with contrast, rule out appendicitis. TECHNIQUE: Multiple contiguous axial images were obtained through the abdomen and pelvis after the administration of intravenous contrast. INDICATION: Nausea. Right lower quadrant abdominal pain. COMPARISON: CT abdomen and pelvis with IV contrast from 06/27/2016. FINDINGS: Mild linear scarring or atelectasis in the lung bases. Cholecystectomy. Calcified granulomas in the spleen. Mild atherosclerotic calcifications including normal-caliber abdominal aorta. The liver, pancreas, adrenals, kidneys, collecting systems, and unopacified bladder are negative. Hysterectomy. Normal appendix. No free intraperitoneal air or fluid. No lymphadenopathy. No evidence of bowel obstruction. Mild spondylotic changes in the visualized spine. No acute osseous findings. IMPRESSION: No acute CT findings in the abdomen or pelvis. Chronic and incidental findings, as above. Dictated on workstation # [id number] Dict: 10/03/17 1328 Trans: 10/03/17 1341 [id number] Interpreted by: ROMAN LEWIS MD Electronically signed by: Departure Communication (Admissions) 3233-her pain is better after Toradol. Her pain is worse with resisted hip flexion. I discussed with her the possibility of a mesenteric adenitis versus a muscular pain. I suspect this pain is muscular. 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 I did discuss the case with Dr. Olson who agrees with plan of care and he is willing to follow up with her in the clinic later this week pain is not gone. Impression Primary Impression: RLQ abdominal tenderness Disposition: 01 HOME, SELF-CARE Condition: Stable Departure-Patient Inst. Decision time for Depature: 13:48 Referrals: KARTHIKEYAN SULLIVAN MD (PCP/Family) Primary Care Physician Patient Instructions: Acute Abdomen (Belly Pain), Adult (DC) Add. Discharge Instructions: 1. Return to ER for any concerns 2. Follow-up with your doctor later this week for recheck. 3. Take tylenol/ibuprofen for pain control. Return to ER for any worsening pain , fevers, or other concerns Copy Copies To 1: KARTHIKEYAN SULLIVAN MD, PETER J APRN Oct 03, 2017 12:27
[2017-10-03] MEDS ORDERED: KETOROLAC 30 MG/ML VIAL IVP ONE (12:30)
[2017-10-03] MEDS ORDERED: ONDANSETRON 4 MG/2 ML (SDV) Z0FRAN IVP ONE (12:30)
[2017-10-03 12:34] LABS: BILIRUBIN,URINE NEGATIVE (NEGATIVE); CLARITY,URINE CLEAR; COLOR,URINE YELLOW; GLUCOSE, URINE (UA) NEGATIVE (NEGATIVE); KETONES,URINE NEGATIVE (NEGATIVE); LEUKOCYTE ESTERASE ,URINE NEGATIVE (NEGATIVE); NITRITE,URINE NEGATIVE (NEGATIVE); PH,URINE 8 (5-9); PROTEIN,URINE NEGATIVE (NEGATIVE); UROBILINOGEN,URINE NORMAL (NORMAL)
[2017-10-03 12:34] LABS: BASOPHILS # (AUTO) 0.1 10^3/uL (0.0-0.1); BASOPHILS % (AUTO) 1 % (0-10); EOSINOPHILS # (AUTO) 0.2 10^3/uL (0.0-0.3); EOSINOPHILS % (AUTO) 2 % (0-10); HEMATOCRIT 45 % (35-52); HEMOGLOBIN 15.1 G/DL (11.5-16.0); LYMPHOCYTES # (AUTO) 3.6 X 10^3 (1.0-4.0); LYMPHOCYTES % (AUTO) 35 % (12-44); MEAN CORPUSCULAR HEMOGLOBIN 30 PG (25-34); MEAN CORPUSCULAR HGB CONC 34 G/DL (32-36); MEAN CORPUSCULAR VOLUME 89 FL (80-99); MEAN PLATELET VOLUME 9.2 FL (7.4-10.4); MONOCYTES # (AUTO) 0.8 X 10^3 (0.0-1.0); MONOCYTES % (AUTO) 8 % (0-12); NEUTROPHILS # (AUTO) 5.7 X 10^3 (1.8-7.8); NEUTROPHILS % (AUTO) 55 % (42-75); PLATELET COUNT 297 10^3/uL (130-400); RED BLOOD COUNT 5.04 10^6/uL (4.35-5.85); RED CELL DISTRIBUTION WIDTH 14.6 % (10.0-14.5); WHITE BLOOD COUNT 10.3 10^3/uL (4.3-11.0)
[2017-10-03 12:41] LABS: BACTERIA,URINE NEGATIVE /HPF; SQUAMOUS EPITHELIAL CELL,UR 0-2 /HPF
[2017-10-03 12:52] LABS: ALANINE AMINOTRANSFERASE 31 U/L (0-55); ALBUMIN 4.6 GM/DL (3.2-4.5); ALKALINE PHOSPHATASE 78 U/L (40-136); BILIRUBIN,TOTAL 0.4 MG/DL (0.1-1.0); BUN/CREATININE RATIO 11; CALCIUM 9.7 MG/DL (8.5-10.1); CARBON DIOXIDE 24 MMOL/L (21-32); CHLORIDE 107 MMOL/L (98-107); CREATININE SERUM 0.72 MG/DL (0.60-1.30); GFR ESTIMATED > 60; GLUCOSE 81 MG/DL (70-105); POTASSIUM 3.8 MMOL/L (3.6-5.0); SODIUM 142 MMOL/L (135-145); TOTAL PROTEIN 7.8 GM/DL (6.4-8.2)
[2017-10-03] MEDS ORDERED: IOHEXOL 350 MG/ML 100 ML (OMNIPAQUE 350) VIAL IV ONE (13:00)
[2017-10-03] MEDS ORDERED: NS 100 ML (IVPB) BAG IV ONE (13:00)
--- NOTE | 2017-10-03 13:41 | Diagnostic Imaging Report ---
PROCEDURE: CT abdomen and pelvis with contrast, rule out appendicitis. TECHNIQUE: Multiple contiguous axial images were obtained through the abdomen and pelvis after the administration of intravenous contrast. INDICATION: Nausea. Right lower quadrant abdominal pain. COMPARISON: CT abdomen and pelvis with IV contrast from 06/27/2016. FINDINGS: Mild linear scarring or atelectasis in the lung bases. Cholecystectomy. Calcified granulomas in the spleen. Mild atherosclerotic calcifications including normal-caliber abdominal aorta. The liver, pancreas, adrenals, kidneys, collecting systems, and unopacified bladder are negative. Hysterectomy. Normal appendix. No free intraperitoneal air or fluid. No lymphadenopathy. No evidence of bowel obstruction. Mild spondylotic changes in the visualized spine. No acute osseous findings. IMPRESSION: No acute CT findings in the abdomen or pelvis. Chronic and incidental findings, as above. Dictated by: Dictated on workstation # [id number]
[2017-10-03 14:02] VITALS: BP 153/97
== END 2017-10-03 14:13 | disposition home or self-care (01) ==
LOC: EDUNIT# 12:16 → ER 12:18
DX: R10.31 Right lower quadrant pain (principal); E78.00 Pure hypercholesterolemia, unspecified; G43.909 Migraine, unspecified, not intractable, without status migrainosus; E03.9 Hypothyroidism, unspecified; Z86.010 Personal history of colon polyps; Z90.710 Acquired absence of both cervix and uterus
CPT/HCPCS: 36415; 74177; 80053; 81000; 85025; 96374; 96375

== ENCOUNTER 2019-03-05 07:18 | Emergency (ER) | payer BC ==
[~2019-03-05] VITALS: Ht 154.8 cm; Wt 76.2 kg
[~2019-03-05 07:18] MED LIST changes: +HYDR-4226 PO; -HYDR-757 PO
[2019-03-05] MEDS ORDERED: PRD20T PO (07:37)
--- NOTE | 2019-03-05 07:38 | ED EENT ---
History of Present Illness General Chief Complaint: Ear Problems Stated Complaint: L EAR PAIN Source: patient Exam Limitations: no limitations History of Present Illness Date Seen by Provider: Mar 05, 2019 Time Seen by Provider: 07:19 Initial Comments 1 day of pressure and pain 2 out of 10 in her left ear. No fevers chills nausea vomiting or toothache. Allergies and Home Medications Allergies Coded Allergies: No Known Drug Allergies (Verified , 06/16/17) Home Medications Docusate Sodium 100 Mg Capsule, 100 MG PO BID Prescribed by: EITAN MORGAN on 07/30/16 1025 Levothyroxine Sodium 100 Mcg Tablet, 100 MCG PO DAILY, (Reported) Pravastatin Sodium 20 Mg Tablet, 20 MG PO DAILY, (Reported) Soy Isofla/Blk Cohosh/Mag Bark 155 Mg Capsule, 155 MG PO DAILY, (Reported) Patient Home Medication List Home Medication List Reviewed: Yes Review of Systems Review of Systems Constitutional: No chills, No diaphoresis Eyes: Denies Blindness, Denies Blurred Vision Ears: See HPI, Pain Nose: denies clots, denies congestion Mouth: denies clots, denies loose teeth, denies pain Throat: denies pain, denies swelling Respiratory: No cough, No short of breath Cardiovascular: No chest pain, No edema Past Ysmgwnq-Ebrhob-Fqgetr Hx Patient Social History Alcohol Use: Denies Use Recreational Drug Use: No Smoking Status: Current Everyday Smoker Type Used: Cigarettes 2nd Hand Smoke Exposure: Yes Recent Foreign Travel: No Contact w/Someone Who Travel: No Recent Hopitalizations: No Immunizations Up To Date Tetanus Booster (TDap): Unknown Date of Influenza Vaccine: Dec 21, 2016 Seasonal Allergies Seasonal Allergies: No Past Medical History Surgeries: Yes (LEFT KNEE SCOPE) Gallbladder, Hysterectomy Respiratory: No Cardiac: Yes High Cholesterol 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: Yes Headaches /Migraines 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 0.0oz. 74.445169kb; 31.2 BMI Method:Stated General Appearance: WD/WN, no apparent distress Eyes: bilateral eye normal inspection, bilateral eye PERRL, bilateral eye EOMI Ears: right ear TM normal; left ear TM bulging, left ear other (clear effusion with no injection or erythema); bilateral ear auricle normal, bilateral ear canal normal Nose: normal inspection; No sinus tenderness Mouth/Throat: normal mouth inspection, pharynx normal Neck: lymphadenopathy (L) (tender, anterior cervical chain lymphadenopathy) Cardiovascular: normal peripheral pulses Respiratory: no respiratory distress, no accessory muscle use Neurologic/Psychiatric: alert, normal mood/affect, oriented x 3 Skin: normal color, warm/dry Departure Impression Primary Impression: Mucoid otitis media with effusion Qualified Codes: H65.92 - Unspecified nonsuppurative otitis media, left ear Disposition: 01 HOME, SELF-CARE Condition: Stable Departure-Patient Inst. Decision time for Depature: 07:34 Referrals: KARTHIKEYAN SULLIVAN MD (PCP/Family) Primary Care Physician Patient Instructions: Serous Otitis Media (DC) Add. Discharge Instructions: Drink plenty of fluids to help your ears drain. Start Flonase/fluticasone or Rhinocort/budesonide 1 puff in each nostril twice a day for the next week. If this does not help then you may start steroids 2 tablets daily for 5 days. If you begin to experience fevers, increasing pain not relieved by ibuprofen 800 mg every 8 hours and Tylenol 1000 mg every 8 hours as well as heating pads then you should follow-up with primary care as you may have developed a bacterial middle ear infection. All discharge instructions reviewed with patient and/or family. Voiced understanding. Scripts Prednisone (Prednisone) 20 Mg Tab 40 MG PO DAILY for 5 Days, #10 TAB 0 Refills Prov: KANDICE KENT 03/05/19 KANDICE KENT Mar 05, 2019 07:37
[2019-03-05 07:41] VITALS: BP 141/82
== END 2019-03-05 07:41 | disposition home or self-care (01) ==
LOC: EDUNIT# 07:18 → ER 07:19
DX: H65.92 Unspecified nonsuppurative otitis media, left ear (principal); E78.00 Pure hypercholesterolemia, unspecified; G43.909 Migraine, unspecified, not intractable, without status migrainosus; E03.9 Hypothyroidism, unspecified; F17.210 Nicotine dependence, cigarettes, uncomplicated; Z90.710 Acquired absence of both cervix and uterus
CPT/HCPCS: 99282

== ENCOUNTER 2020-10-07 07:02 | Emergency (ER) | payer BC ==
[~2020-10-07 07:02] MED LIST changes: +PRD20T PO
--- NOTE | 2020-10-07 10:02 | ED GI ---
General Chief Complaint: Abdominal/GI Problems Stated Complaint: UPPER ABD PAIN Nursing Triage Note: Pt ambulatory to ED. PT reports intermittent epigastric pain for two months that radiates to L ribs. PT has been seeing Mercedes Cheng and had blood work and CT last week. Pt has not received results. Pt takes Tramadol and pantoprazole. Pt reports pain returned last night but less severe than previous episodes. Pt c/o constipation. Last BM wednesday. Pt reports unintended weight loss of 30 pounds in two months. Hx of pancreatitis. Source of Information: Patient Exam Limitations: No Limitations History of Present Illness Date Seen by Provider: Oct 07, 2020 Time Seen by Provider: 09:15 Initial Comments Here with report of upper abdominal pain and left upper quadrant pain. She has been followed by her doctor and had CT scan done a few days ago but does not know the results. Does have history of pancreatitis. She had ultrasound done last week that was negative for any concerns which she states was in the upper abdomen including gallbladder. Denies nausea or vomiting. Pain is worse today but better now. Does not know of any inciting/exacerbating or relieving factors. If she gets the pain, she will switch to a clear liquid diet for a few days and that usually helps. She has not had upper endoscopy. Her doctor mentioned that that may be the next phase of evaluation. She does take pantoprazole and tramadol. Currently denies nausea or vomiting. Denies weakness. Does have history of some constipation. Last BM a few days ago. Timing/Duration: 4-6 Hours, Changing Over Time, Other (Better now) Severity/Quality: Moderate, Sharp Location: LUQ, Epigastric Radiation: No Radiation Activities at Onset: None Modifying Factors: Worsens With Eating; Improves With Resting Associated Symptoms: No Back Pain, No Chest Pain, No Fever/Chills, No Nausea/Vomiting, No Shortness of Air, No Weakness Allergies and Home Medications Allergies Coded Allergies: No Known Drug Allergies (Verified , 06/16/17) Home Medications Docusate Sodium 100 Mg Capsule, 100 MG PO BID Pres[facility] by: [facility] 07/30/16 1025 Levothyroxine Sodium 100 Mcg Tablet, 100 MCG PO DAILY, (Reported) Pravastatin Sodium 20 Mg Tablet, 20 MG PO DAILY, (Reported) Prednisone 20 Mg Tab, 40 MG PO DAILY Prescribed by: KANDICE KENT on 03/05/19 0737 Soy Isofla/Blk Cohosh/Mag Bark 155 Mg Capsule, 155 MG PO DAILY, (Reported) Patient Home Medication List Home Medication List Reviewed: Yes Review of Systems Review of Systems Constitutional: see HPI; No chills, No fever EENTM: No Symptoms Reported Respiratory: No Symptoms Reported Cardiovascular: No Symptoms Reported Gastrointestinal: See HPI, Abdominal Pain, Constipated Genitourinary: No Symptoms Reported Musculoskeletal: no symptoms reported Skin: no symptoms reported All Other Systems Reviewed Negative Unless Noted: Yes Past Jdehqza-Jldmmf-Xwrwsz Hx Patient Social History Tobacco Use?: Yes Tobacco type used: Cigarettes Smoking Status: Current Someday Smoker Substance use?: No Alcohol Use?: No Pt feels they are or have been: No Immunizations Up To Date Tetanus Booster (TDap): Unknown First/Initial COVID19 Vaccinat: 05/26 Second COVID19 Vaccination Reji: 06/26 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 Seasonal Allergies Seasonal Allergies: No Past Medical History Surgeries: Yes (LEFT KNEE SCOPE) Gallbladder, Hysterectomy Respiratory: No Cardiac: Yes High Cholesterol 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: Yes Headaches /Migraines Reproductive Disorders: No 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 0.0oz. 74.056845kg; 31.00 BMI Method:Stated General Appearance: WD/WN, no apparent distress Neck: full range of motion, supple Respiratory: lungs clear, normal breath sounds Cardiovascular: regular rate, rhythm, no murmur Gastrointestinal: soft; No guarding, No rebound; tenderness (Left upper quadrant); No mass Extremities: non-tender, normal inspection, no pedal edema Back: normal inspection, no CVA tenderness, no vertebral tenderness Neurologic/Psychiatric: alert, oriented x 3 Skin: normal color, warm/dry Progress/Results/Core Measures Results/Orders Lab Results Laboratory Tests Test 10/07/20 09:55 Range/Units White Blood Count 9.5 4.3-11.0 10^3/uL Red Blood Count 4.84 3.80-5.11 10^6/uL Hemoglobin 14.0 11.5-16.0 g/dL Hematocrit 43 35-52 % Mean Corpuscular Volume 88 80-99 fL Mean Corpuscular Hemoglobin 29 25-34 pg Mean Corpuscular Hemoglobin Concent 33 32-36 g/dL Red Cell Distribution Width 14.9 H 10.0-14.5 % Platelet Count 324 130-400 10^3/uL Mean Platelet Volume 9.3 9.0-12.2 fL Immature Granulocyte % (Auto) 0 % Neutrophils (%) (Auto) 74 42-75 % Lymphocytes (%) (Auto) 17 12-44 % Monocytes (%) (Auto) 7 0-12 % Eosinophils (%) (Auto) 1 0-10 % Basophils (%) (Auto) 0 0-10 % Neutrophils # (Auto) 7.0 1.8-7.8 10^3/uL Lymphocytes # (Auto) 1.6 1.0-4.0 10^3/uL Monocytes # (Auto) 0.7 0.0-1.0 10^3/uL Eosinophils # (Auto) 0.1 0.0-0.3 10^3/uL Basophils # (Auto) 0.0 0.0-0.1 10^3/uL Immature Granulocyte # (Auto) 0.0 0.0-0.1 10^3/uL Sodium Level 142 135-145 MMOL/L Potassium Level 3.5 L 3.6-5.0 MMOL/L Chloride Level 105 98-107 MMOL/L Carbon Dioxide Level 24 21-32 MMOL/L Anion Gap 13 5-14 MMOL/L Blood Urea Nitrogen 5 L 7-18 MG/DL Creatinine 0.67 0.60-1.30 MG/DL Estimat Glomerular Filtration Rate 89 BUN/Creatinine Ratio 7 Glucose Level 90 70-105 MG/DL Calcium Level 9.5 8.5-10.1 MG/DL Corrected Calcium 9.5 8.5-10.1 MG/DL Total Bilirubin 0.5 0.1-1.0 MG/DL Aspartate Amino Transf (AST/SGOT) 15 5-34 U/L Alanine Aminotransferase (ALT/SGPT) 11 0-55 U/L Alkaline Phosphatase 85 40-136 U/L Total Protein 7.5 6.4-8.2 GM/DL Albumin 4.0 3.2-4.5 GM/DL Amylase Level 368 H 25-125 U/L Lipase 170 H 8-78 U/L My Orders Orders - MANUEL MARCANO MD Amylase (10/07/20 09:24) Cbc With Automated Diff (10/07/20 09:24) Comprehensive Metabolic Panel (10/07/20 09:24) Lipase (10/07/20 09:24) Vital Signs/I&O 10/07/20 07:27 Pulse 76 Resp 20 B/P (MAP) 129/87 (101) Pulse Ox 97 O2 Delivery Room Air Blood Pressure Mean: 101 Progress Progress Note : Progress Note Seen and evaluated. We will get basic labs for blood draw and ask for the results from the CT scan done at [facility]. Monitor patient. 1147: Overall doing okay but does have some pain. I did discuss the case with Dr. Kruger. I reviewed the notes from [facility] CT scan which does show fluid collection near the pancreas that is likely related to pseudocyst from pancreatitis and she has 3 different collections including at the tail as well as near the stomach and in the left paracolic gutter in the upper abdomen. All of this was discussed with Dr. Kruger. Likely needs draining of the pseudocyst. He will assist with setting up outpatient referral to GI specialty in [place]. Hydrocodone 5/325 1 tab p.o. given now. I will write small prescription for this. Discharged home with return precautions. Patient and family verbalized understanding of instructions and agreement with plan. Departure Impression Primary Impression: Pancreatitis Qualified Codes: K86.1 - Other chronic pancreatitis Additional Impression: Pancreatic pseudocyst Disposition: 01 HOME, SELF-CARE Condition: Stable Departure-Patient Inst. Decision time for Depature: 11:49 Referrals: NARESH KRUGER RACHEL L MD (PCP/Family) Primary Care Physician Patient Instructions: Pancreatitis (DC), Chronic Pancreatitis (DC) Add. Discharge Instructions: All discharge instructions reviewed with patient and/or family. Voiced understanding. Clear liquid diet for the next few days. Follow-up with Dr. Kruger. Call his office today for appointment for Wednesday. Let them know he requested to see you on Wednesday. For there are concerns for constipation related to pain medication use, you may take MiraLAX or the generic 1 capful twice daily as needed to keep stools soft. You may increase or decrease the dose to keep stools in normal range. If you are not having to take the hydrocodone- containing compound, you may take the tramadol. Do not take both at the same ti me. Return for worse pain, fever, vomiting, weakness, breathing problems or other concerns as needed. Scripts Hydrocodone Bit/Acetaminophen (HYDROcodone/APAP 5 MG/325 MG TAB) 1 Tab Tab 1 TAB PO Q6H for Pain, #12 TAB 0 Refills Prov: MANUEL MARCANO MD 10/07/20 Copy Copies To 1: NARESH KRUGER DO Copies To 2: MERCEDES CHENG MD, TIMOTHY D MD Oct 07, 2020 10:02
[2020-10-07 10:06] LABS: BASOPHILS % (AUTO) 0 % (0-10); EOSINOPHILS # (AUTO) 0.1 10^3/uL (0.0-0.3); EOSINOPHILS % (AUTO) 1 % (0-10); HEMATOCRIT 43 % (35-52); LYMPHOCYTES # (AUTO) 1.6 10^3/uL (1.0-4.0); LYMPHOCYTES % (AUTO) 17 % (12-44); MEAN CORPUSCULAR HEMOGLOBIN 29 pg (25-34); MEAN CORPUSCULAR HGB CONC 33 g/dL (32-36); MEAN CORPUSCULAR VOLUME 88 fL (80-99); MEAN PLATELET VOLUME 9.3 fL (9.0-12.2); MONOCYTES # (AUTO) 0.7 10^3/uL (0.0-1.0); MONOCYTES % (AUTO) 7 % (0-12); NEUTROPHILS % (AUTO) 74 % (42-75); PLATELET COUNT 324 10^3/uL (130-400); WHITE BLOOD COUNT 9.5 10^3/uL (4.3-11.0)
[2020-10-07 10:22] LABS: POTASSIUM 3.5 MMOL/L (3.6-5.0)
[2020-10-07 10:23] LABS: CALCIUM 9.5 MG/DL (8.5-10.1)
[2020-10-07 10:24] LABS: TOTAL PROTEIN 7.5 GM/DL (6.4-8.2)
[2020-10-07 10:26] LABS: BILIRUBIN,TOTAL 0.5 MG/DL (0.1-1.0)
[2020-10-07 10:28] LABS: CREATININE SERUM 0.67 MG/DL (0.60-1.30)
[2020-10-07] MEDS ORDERED: ACHD5005 PO (11:51)
[2020-10-07 11:58] VITALS: BP 103/85
[2020-10-07] MEDS ORDERED: HYDROcodone/APAP 5 MG/325 MG (LORTAB) TAB PO ONE (12:00)
== END 2020-10-07 11:56 | disposition home or self-care (01) ==
LOC: EDUNIT# 07:02 → ER 07:04
DX: K85.90 Acute pancreatitis without necrosis or infection, unspecified (principal); K86.3 Pseudocyst of pancreas; E78.00 Pure hypercholesterolemia, unspecified; E03.9 Hypothyroidism, unspecified; F17.210 Nicotine dependence, cigarettes, uncomplicated; Z79.890 Hormone replacement therapy; Z79.899 Other long term (current) drug therapy; Z79.52 Long term (current) use of systemic steroids
CPT/HCPCS: 36415; 80053; 82150; 83690; 85025

== ENCOUNTER 2021-04-22 12:58 | Emergency (ER) | payer BC ==
[~2021-04-22] VITALS: Ht 157 cm; Wt 64.0 kg
[2021-04-22 13:22] LABS: BASOPHILS # (AUTO) 0.1 10^3/uL (0.0-0.1); BASOPHILS % (AUTO) 1 % (0-10); EOSINOPHILS # (AUTO) 0.2 10^3/uL (0.0-0.3); EOSINOPHILS % (AUTO) 1 % (0-10); HEMATOCRIT 42 % (35-52); HEMOGLOBIN 14.1 g/dL (11.5-16.0); LYMPHOCYTES % (AUTO) 22 % (12-44); MEAN CORPUSCULAR HEMOGLOBIN 31 pg (25-34); MEAN CORPUSCULAR HGB CONC 33 g/dL (32-36); MEAN CORPUSCULAR VOLUME 92 fL (80-99); MEAN PLATELET VOLUME 9.5 fL (9.0-12.2); MONOCYTES # (AUTO) 0.9 10^3/uL (0.0-1.0); MONOCYTES % (AUTO) 7 % (0-12); NEUTROPHILS # (AUTO) 9.8 10^3/uL (1.8-7.8); NEUTROPHILS % (AUTO) 70 % (42-75); PLATELET COUNT 251 10^3/uL (130-400)
[2021-04-22] MEDS ORDERED: ONDANSETRON 4 MG/2 ML (SDV) Z0FRAN IVP ONE (13:30)
[2021-04-22 13:36] LABS: ALBUMIN 4.3 GM/DL (3.2-4.5); POTASSIUM 4.2 MMOL/L (3.6-5.0)
[2021-04-22 13:39] LABS: TOTAL PROTEIN 7.6 GM/DL (6.4-8.2)
[2021-04-22 13:41] LABS: BAND NEUTROPHILS 0 %; BASOPHILS % (MANUAL) 0 %; BILIRUBIN,TOTAL 0.4 MG/DL (0.1-1.0); EOSINOPHILS % (MANUAL) 1 %; LYMPHOCYTES % (MANUAL) 26 %; MONOCYTES % (MANUAL) 8 %; NEUTROPHILS % (MANUAL) 65 %; RBC MORPH NORMAL
[2021-04-22 13:42] LABS: CREATININE SERUM 0.74 MG/DL (0.60-1.30)
[2021-04-22 13:59] LABS: BILIRUBIN,URINE NEGATIVE (NEGATIVE); CLARITY,URINE CLEAR; COLOR,URINE YELLOW; GLUCOSE, URINE (UA) NEGATIVE (NEGATIVE); KETONES,URINE NEGATIVE (NEGATIVE); LEUKOCYTE ESTERASE ,URINE NEGATIVE (NEGATIVE); NITRITE,URINE NEGATIVE (NEGATIVE); PROTEIN,URINE NEGATIVE (NEGATIVE)
[2021-04-22 14:11] LABS: BACTERIA,URINE TRACE /HPF; SQUAMOUS EPITHELIAL CELL,UR 0-2 /HPF; WBC,URINE RARE /HPF
[2021-04-22] MEDS ORDERED: NS 100 ML (IVPB) BAG IV ONE (15:00)
[2021-04-22] MEDS ORDERED: HOLD METFORMIN - RECEIVED CONTRAST 20 ML VIAL IV SCH (15:00)
[2021-04-22] MEDS ORDERED: IOHEXOL 350 MG/ML 100 ML (OMNIPAQUE 350) VIAL IV ONE (15:00)
--- NOTE | 2021-04-22 15:20 | Diagnostic Imaging Report ---
PROCEDURE: CT abdomen and pelvis with contrast. TECHNIQUE: Multiple contiguous axial images were obtained through the abdomen and pelvis after administration of intravenous contrast. Auto Exposure Controls were utilized during the CT exam to meet ALARA standards for radiation dose reduction. All CT scans use one or more of the following dose optimizing techniques: automated exposure control, MA and/or KvP adjustment based on patient size and exam type or iterative reconstruction. INDICATION: Pancreatitis, abdominal pain. COMPARISON: 10/03/2017. FINDINGS: There is abnormal inflammation and enlargement of the distal body and pancreatic tail, likely pancreatitis. There is no pseudocyst formation. There is some progressive atrophy of the pancreatic head. No obvious tissue necrosis is seen. Vascular structures are unremarkable. There is slight atelectasis in both lung bases. The gallbladder is surgically absent. Additional solid organs, vascular structures, and bowel are normal. There is no ascites. The urinary bladder is unremarkable. The uterus is surgically absent. Osseous structures are age appropriate. IMPRESSION: 1. Pancreatitis without pseudocyst, necrosis, or abscess. Follow-up recommended. 2. Cholecystectomy. Dictated by: Dictated on workstation # [id number]
[2021-04-22] MEDS ORDERED: LACTATED RINGERS 1,000 ML IV ONE (15:30)
[2021-04-22] MEDS ORDERED: ONDA4TAB11 SL (17:30)
--- NOTE | 2021-04-22 17:31 | ED Abdominal Pain ---
General Chief Complaint: Abdominal/GI Problems Stated Complaint: ABD PAIN Nursing Triage Note: PT CO OF ABD PAIN, STATES STARTED THIS AM UPPER ABD TO L UPPER ABD. PT STATES HAS HAD A CYST ON PANCREASE LAST YEAR. PT STATES WHEN LAST SEEN BY COULD NOT SEE STENT FROM PANCREASE. PT STATES ATE STEAK LAST PM. PT CO OF PAIN AND NAUSEA Source of Information: Patient Exam Limitations: No Limitations History of Present Illness Date Seen by Provider: Apr 22, 2021 Allergies and Home Medications Allergies Coded Allergies: No Known Drug Allergies (Verified , 06/16/17) Patient Home Medication List Docusate Sodium (Colace) 100 Mg Capsule, 100 MG PO BID Prescribed by: EITAN MORGAN on 07/30/16 1025 Hydrocodone Bit/Acetaminophen (HYDROcodone/APAP 5 MG/325 MG TAB) 1 Tab Tab, 1 TAB PO Q6H Prescribed by: MANUEL MARCANO on 10/07/20 1151 Levothyroxine Sodium (Levothyroxine Sodium) 100 Mcg Tablet, 100 MCG PO DAILY, (Reported) Entered as Reported by: RAMON SOTO on 06/16/17 0922 Pravastatin Sodium (Pravastatin Sodium) 20 Mg Tablet, 20 MG PO DAILY, (Reported) Entered as Reported by: RAMON SOTO on 07/27/16 0909 Prednisone (Prednisone) 20 Mg Tab, 40 MG PO DAILY Prescribed by: KANDICE KENT on 03/05/19 0737 Soy Isofla/Blk Cohosh/Mag Bark (Estroven 155 mg Capsule) 155 Mg Capsule, 155 MG PO DAILY, (Reported) Entered as Reported by: RAMON SOTO on 06/16/17 0922 Past Obxgser-Hyknye-Opdfdg Hx Patient Social History Tobacco Use?: Yes Tobacco type used: Cigarettes Smoking Status: Current Everyday Smoker Substance use?: No Alcohol Use?: No Pt feels they are or have been: No Immunizations Up To Date Tetanus Booster (TDap): Unknown First/Initial COVID19 Vaccinat: 2020 Second COVID19 Vaccination Reji: 2020 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[employer] Seasonal Allergies Seasonal Allergies: No Past Medical History Surgery/Hospitalization HX: CYST ON PANCREASE, GB, HYST, COLONOSCOPY, Surgeries: Yes (LEFT KNEE SCOPE) Gallbladder, Hysterectomy Respiratory: No Cardiac: Yes High Cholesterol 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: Yes Headaches /Migraines Reproductive Disorders: No 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 0.0oz. 74.821774mc; 25.00 BMI Method:Stated Progress/Results/Core Measures Results/Orders Lab Results Laboratory Tests Test 04/22/21 13:10 04/22/21 13:55 Range/Units White Blood Count 14.0 H 4.3-11.0 10^3/uL Red Blood Count 4.61 3.80-5.11 10^6/uL Hemoglobin 14.1 11.5-16.0 g/dL Hematocrit 42 35-52 % Mean Corpuscular Volume 92 80-99 fL Mean Corpuscular Hemoglobin 31 25-34 pg Mean Corpuscular Hemoglobin Concent 33 32-36 g/dL Red Cell Distribution Width 13.6 10.0-14.5 % Platelet Count 251 130-400 10^3/uL Mean Platelet Volume 9.5 9.0-12.2 fL Immature Granulocyte % (Auto) 0 % Neutrophils (%) (Auto) 70 42-75 % Lymphocytes (%) (Auto) 22 12-44 % Monocytes (%) (Auto) 7 0-12 % Eosinophils (%) (Auto) 1 0-10 % Basophils (%) (Auto) 1 0-10 % Neutrophils # (Auto) 9.8 H 1.8-7.8 10^3/uL Lymphocytes # (Auto) 3.0 1.0-4.0 10^3/uL Monocytes # (Auto) 0.9 0.0-1.0 10^3/uL Eosinophils # (Auto) 0.2 0.0-0.3 10^3/uL Basophils # (Auto) 0.1 0.0-0.1 10^3/uL Immature Granulocyte # (Auto) 0.0 0.0-0.1 10^3/uL Neutrophils % (Manual) 65 % Lymphocytes % (Manual) 26 % Monocytes % (Manual) 8 % Eosinophils % (Manual) 1 % Basophils % (Manual) 0 % Band Neutrophils 0 % Blood Morphology Comment NORMAL Sodium Level 138 135-145 MMOL/L Potassium Level 4.2 3.6-5.0 MMOL/L Chloride Level 105 98-107 MMOL/L Carbon Dioxide Level 25 21-32 MMOL/L Anion Gap 8 5-14 MMOL/L Blood Urea Nitrogen 12 7-18 MG/DL Creatinine 0.74 0.60-1.30 MG/DL Estimat Glomerular Filtration Rate 91 BUN/Creatinine Ratio 16 Glucose Level 106 H 70-105 MG/DL Calcium Level 9.0 8.5-10.1 MG/DL Corrected Calcium 8.8 8.5-10.1 MG/DL Total Bilirubin 0.4 0.1-1.0 MG/DL Aspartate Amino Transf (AST/SGOT) 32 5-34 U/L Alanine Aminotransferase (ALT/SGPT) 42 0-55 U/L Alkaline Phosphatase 80 40-136 U/L Total Protein 7.6 6.4-8.2 GM/DL Albumin 4.3 3.2-4.5 GM/DL Lipase 122 H 8-78 U/L Urine Color YELLOW Urine Clarity CLEAR Urine pH 6.0 5-9 Urine Specific [place] 1.010 L 1.016-1.022 Urine Protein NEGATIVE NEGATIVE Urine Glucose (UA) NEGATIVE NEGATIVE Urine Ketones NEGATIVE NEGATIVE Urine Nitrite NEGATIVE NEGATIVE Urine Bilirubin NEGATIVE NEGATIVE Urine Urobilinogen 0.2 < = 1.0 MG/DL Urine Leukocyte Esterase NEGATIVE NEGATIVE Urine RBC (Auto) TRACE-I H NEGATIVE Urine RBC 2-5 H /HPF Urine WBC RARE /HPF Urine Squamous Epithelial Cells 0-2 /HPF Urine Crystals NONE /LPF Urine Bacteria TRACE /HPF Urine Casts NONE /LPF Urine Mucus SMALL H /LPF Urine Culture Indicated NO My Orders Orders - BRITTANY MITCHELL MD Ed Iv/Invasive Line Start (04/22/21 13:03) Cbc With Automated Diff (04/22/21 13:03) Comprehensive Metabolic Panel (04/22/21 13:03) Lipase (04/22/21 13:03) Ua Culture If Indicated (04/22/21 13:03) Ondansetron Injection (Zofran Injectio (04/22/21 13:30) Manual Differential (04/22/21 13:10) Ct Abdomen/Pelvis W (04/22/21 14:46) Iohexol Injection (Omnipaque 350 Mg/Ml 1 (04/22/21 15:00) Received Contrast (Hold Metformin- Contr (04/22/21 15:00) Ns (Ivpb) (Sodium Chloride 0.9% Ivpb Bag (04/22/21 15:00) Lactated Ringers (Lr 1000 Ml Iv Solution (04/22/21 15:30) Medications Given in ED Current Medications Medications Dose Ordered Sig/Claudia Route Start Time Stop Time Status Last Admin Dose Admin Iohexol 100 ml ONCE ONCE IV 04/22/21 15:00 04/22/21 15:01 DC 04/22/21 15:09 80 ML Lactated Ringer's 1,000 ml @ 0 mls/hr Q0M ONCE IV 04/22/21 15:30 04/22/21 15:31 DC 04/22/21 15:40 1,000 MLS/HR Ondansetron HCl 8 mg ONCE ONCE IVP 04/22/21 13:30 04/22/21 13:31 DC 04/22/21 13:29 8 MG Sodium Chloride 100 ml ONCE ONCE IV 04/22/21 15:00 04/22/21 15:01 DC 04/22/21 15:09 80 ML Vital Signs/I&O 04/22/21 13:00 Temp 36.0 Pulse 78 Resp 18 B/P (MAP) 160/103 (122) Pulse Ox 98 Blood Pressure Mean: 122 Departure Impression Primary Impression: Acute pancreatitis Qualified Codes: K85.90 - Acute pancreatitis without necrosis or infection, unspecified Additional Impressions: Upper abdominal pain Nausea & vomiting Qualified Codes: R11.2 - Nausea with vomiting, unspecified Disposition: 01 HOME, SELF-CARE Condition: Improved Departure-Patient Inst. Decision time for Depature: 17:25 Referrals: NO,LOCAL PHYSICIAN (PCP/Family) Primary Care Physician Patient Instructions: Abdominal Pain, Adult ED, Pancreatitis (DC) Add. Discharge Instructions: Adhere to a clear liquid diet for 24 to 48 hours. Then gradually advance your diet with small quantities of bland food as tolerated. You may use your hydrocodone as previously prescribed. Use Zofran (ondansetron) as prescribed for nausea and vomiting. Call with questions or concerns. Follow-up with Dr. Del Valle as soon as possible. Return to the ER if you have worsening symptoms despite following these instructions. All discharge instructions reviewed with patient and/or family. Voiced understanding. Scripts Ondansetron (Ondansetron Odt) 4 Mg Tab.rapdis 4 MG SL Q4H PRN for NAUSEA/VOMITING, #10 TAB Prov: BRITTANY MITCHELL MD 04/22/21 BRITTANY MITCHELL MD Apr 22, 2021 17:30
[2021-04-22 17:49] VITALS: BP 142/78
== END 2021-04-22 17:49 | disposition home or self-care (01) ==
LOC: EDUNIT# 12:58 → ER 13:00
DX: K85.90 Acute pancreatitis without necrosis or infection, unspecified (principal); E78.00 Pure hypercholesterolemia, unspecified; E03.9 Hypothyroidism, unspecified; F17.210 Nicotine dependence, cigarettes, uncomplicated; Z79.890 Hormone replacement therapy; Z79.899 Other long term (current) drug therapy
CPT/HCPCS: 36415; 74177; 80053; 81000; 83690; 85007; 85027

== ENCOUNTER → 2021-09-24 | Outpatient (CLI) | payer BC ==
[~2021-09-24] MED LIST changes: +CATHETER FLUSH 10 ML SYR IV PRN; +DIATRIZOATE MEGLUM/SODIUM 37% 120 ML (GASTROGRAFIN) PO ONE; +HOLD METFORMIN - RECEIVED CONTRAST 20 ML VIAL IV SCH; +IOHEXOL 350 MG/ML 100 ML (OMNIPAQUE 350) VIAL IV ONE; +NS 100 ML (IVPB) BAG IV ONE; +ONDA4TAB11 SL
[2021-09-24 10:28] LABS: POTASSIUM 4.1 MMOL/L (3.6-5.0)
[2021-09-24 10:29] LABS: CALCIUM 8.9 MG/DL (8.5-10.1)
[2021-09-24 10:33] LABS: CREATININE SERUM 0.63 MG/DL (0.60-1.30)
--- NOTE | 2021-09-24 12:23 | Diagnostic Imaging Report ---
PROCEDURE: CT abdomen with contrast only. TECHNIQUE: Multiple contiguous axial images were obtained through the abdomen after the administration of intravenous contrast. Auto Exposure Controls were utilized during the CT exam to meet ALARA standards for radiation dose reduction. INDICATION: Elevated liver enzymes. Abdominal pain. Pancreatitis. COMPARISON: 04/22/2021. FINDINGS: The heart is unremarkable. The lung bases are clear. A focal area of non-enhancement is seen within the distal body of the pancreas measuring 3.4 x 1.7 cm and 1.6 cm craniocaudal. There are mild peripancreatic inflammatory changes abutting the distal body and tail of the pancreas. No pancreatic ductal dilation is seen. Innumerable focal and confluent areas of decreased attenuation are seen throughout the liver. This is new since the prior exam. The main portal vein is patent. However, there is suggestion of thrombus at the confluence of the splenic vein and superior mesenteric vein (image 51, series 2). The gallbladder is surgically absent. There is a small volume of ascites in the upper abdomen. The spleen and kidneys have a normal appearance. There is nonspecific thickening of the left adrenal gland. The right adrenal gland is unremarkable. There is no pathologically enlarged mesenteric or retroperitoneal adenopathy. The bowel loops are nondilated. The appendix is visualized in the right lower quadrant and has a normal appearance. There is no free air. No acute osseous abnormalities. There is calcified aortic and iliac atherosclerotic plaque without aneurysm. IMPRESSION: 1. Findings highly concerning for primary pancreatic malignancy within the distal body of the pancreas with associated metastatic disease throughout the liver. Alternatively, findings could represent pancreatitis with developing necrosis in the distal body of the pancreas with innumerable associated liver abscesses. Recommend Gastroenterology consultation if not already established and MRI of the abdomen with liver protocol to further evaluate. 2. 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 3. Small volume of ascites in the upper abdomen. Findings were discussed with Julia Bower NP, at 1:35 p.m. on 09/24/[address] Noah Giron. Dictated by: Dictated on workstation # [id number]
== END ==
LOC: RAD 10:05
PROVIDERS: ATTEND Nurse Practitioner Family
DX: K85.90 Acute pancreatitis without necrosis or infection, unspecified (principal)
CPT/HCPCS: 36415; 74160; 80048

== ENCOUNTER 2021-10-07 09:59 | Day surgery (SDC) | payer BC ==
[2021-10-07] VITALS (7 sets, daily range): BP systolic 102–109; BP diastolic 75–81
[~2021-10-07] VITALS: Ht 154.9 cm; Wt 64.0 kg
[~2021-10-07 09:59] MED LIST changes: -CATHETER FLUSH 10 ML SYR IV PRN; -DIATRIZOATE MEGLUM/SODIUM 37% 120 ML (GASTROGRAFIN) PO ONE; -HOLD METFORMIN - RECEIVED CONTRAST 20 ML VIAL IV SCH; -IOHEXOL 350 MG/ML 100 ML (OMNIPAQUE 350) VIAL IV ONE; -NS 100 ML (IVPB) BAG IV ONE
[2021-10-07] MEDS: LACTATED RINGERS 1,000 ML IV PRN ×2 (10:30→12:40)
[2021-10-07] MEDS ORDERED: fentaNYL INJ 100 MCG/2 ML AMP ONE ×2 (10:37→12:42)
[2021-10-07] MEDS ORDERED: MIDAZOLAM 2 MG/2 ML (VERSED) VIAL ONE (10:37)
[2021-10-07] MEDS ORDERED: PROPOFOL INJECTION 50 ML IV ONE (10:37)
[2021-10-07] MEDS ORDERED: LIPA1CAP67 PO (10:56)
[2021-10-07] MEDS ORDERED: CLN.1T PO (10:56)
[2021-10-07] MEDS ORDERED: ceFAZolin 2 GM IV Premixed 50 ML ONE (10:57)
[2021-10-07] MEDS ORDERED: ceFAZolin 2 GM IV Premixed 50 ML IV ONE (11:15)
[2021-10-07] MEDS ORDERED: LIDOCAINE/EPI 2% 1:200,00 (XYLOCAINE) 20 ML VIAL ONE (11:31)
[2021-10-07] MEDS ORDERED: 0.9% SODIUM CHLORIDE PF INJ 20 ML VIAL ONE (11:31)
[2021-10-07] MEDS ORDERED: HEParin (CENTRAL IV FLUSH) 500 UNIT/5 ML SYR ONE (11:31)
--- NOTE | 2021-10-07 11:58 | Progress Note-Pre Operative ---
Pre-Operative Progress Note Date of Available H&P: Oct 06, 2021 Date H&P Reviewed: Oct 07, 2021 Time H&P Reviewed: 11:57 History & Physical: H&P Reviewed, Patient Examed, No changes noted Pre-Operative Diagnosis: pancreatic cancer, venous insufficiency NARESH KRUGER DO Oct 07, 2021 11:58
--- NOTE | 2021-10-07 13:14 | Discharge Inst-Simple/Standard ---
Discharge Inst-Standard Patient Instructions/Follow Up Plan of Care/Instructions/FU: 2 weeks Thomas Activity as Tolerated: No Discharge Diet: Regular Diet Other Inst to Patient Follow up Appt: Make appointment for 2 week. Instructions: No lifting greater than 10 pounds. No strenuous activity. May shower in 24 hours, no tub bath or soaking. Use incentive spirometer at home as directed. No Smoking Skin/Wound Care: You have special glue over your incision that will fall off on it's own. Ice pack on 15 min and off 30 min and repeat for 48 hours. This reduces swelling and discomfort. Symptoms to Report: Appetite Changes, Extremity Discoloration, Numbness/Tingling, Swelling Increased, Bleeding Excessive, Eyesight Changes, Pain Increased, Urine Color Change, Constipation(Persistent), Fever over 101 degree F, Pain/Pressure in chest, Urinating Difficulty, Cough Up/Vomit Blood, Heart Beat Irreg/Pounding, Pain/Pressure in jaw, Vaginal Bleeding Increase, Cramps in feet or legs, Lightheadedness, Pain/Pressure in shoulder, Diarrhea(Persistent), Memory Changes Suddenly, Questions/Concerns, Weight gain consecutive days, Dizziness/Fainting, Nausea/Vomiting, Shortness of Breath, Weight gain over 2 pounds If questions or concerns contact your physician Or seek help at emergency department. NARESH KRUGER DO Oct 07, 2021 13:14
--- NOTE | 2021-10-07 13:15 | Progress Note-Post Operative ---
Post-Operative Progess Note Surgeon (s)/Veterinary Medicine Doctor (s) Surgeon NARESH KRUGER DO Veterinary Medicine Doctor: na Pre-Operative Diagnosis pancreatic cancer, venous insufficiency Post-Operative Diagnosis same Procedure & Operative Findings Date of Procedure 10/07/21 Procedure Performed/Findings PROCEDURE: Right internal jugular port placement using ultrasound guidance. COMPLICATIONS: None. INDICATIONS: The patient is a 66 year old female with pancreatic cancer. Patient understands the risks and benefits of port placement and wished to proceed with the procedure. Consent was signed on the chart. PROCEDURE: The patient was taken to the operating suite, was prepped and draped in the sterile fashion. A surgical pause was performed. Ultrasound was used to locate the internal jugular vein. Once located anesthetic was infiltrated above it. Using micro-access kit, the right internal vein was accessed. Dark nonpulsatile blood was withdrawn. The wire was inserted. Fluoroscopy assured proper placement. The needle was removed. The micro-access dilator was advanced over the wire and the wire was removed. The regular wire was inserted and fluoroscopy assured proper placement. The wire was then secured. Local anesthetic was used to anesthetize from the neck for tunneling down to the right chest and for pocket creation. A 15 blade scalpel was used to make an incision over the right chest. Cautery was used to dissect down to the pectoral fascia. A pocket was created with blunt dissection. The dilator sheath was then advanced over the wire under fluoroscopy and the dilator and wire were removed. The Groshong catheter was inserted through the sheath and the sheath was then removed. The Groshong wire was removed. The catheter was then tunneled to the right chest pocket. Fluoroscopy was used to cut to length and this was then attached to the port which was then placed within the pocket. The port was then accessed without difficulty. It was then flushed with saline and then heparin. The subcutaneous tissues were then reapproximated using 3-0 Vicryl. The areas were then washed and dried. Skin Affix was placed over incision. The insertion point of the neck Skin Affix was placed over the incision. The patient tolerated the procedure well without complication and was taken to recovery room in stable condition. Chest x-ray is pending. Anesthesia Type mac c local Estimated Blood Loss Estimated blood loss (mL): minimal Specimens/Packing Specimens Removed NARESH Lopez DO Oct 07, 2021 13:15
--- NOTE | 2021-10-07 13:21 | Anesthesia-General Post-Op ---
MAC Patient Condition Mental Status/LOC: Same as Preop Cardiovascular: Satisfactory Nausea/Vomiting: Absent Respiratory: Satisfactory Pain: Controlled Complications: Absent Post Op Complications Complications None Follow Up Care/Instructions Patient Instructions None needed. Anesthesiology Discharge Order Discharge Order Patient is doing well in PACU, no complaints, stable vital signs, no apparent adverse anesthesia problems. No complications reported per nursing. GISSEL PELAEZ DO Oct 07, 2021 13:21
[2021-10-07] MEDS ORDERED: ONDANSETRON 4 MG/2 ML (SDV) Z0FRAN IVP PRN (13:30)
[2021-10-07] MEDS ORDERED: morphine INJ 10 MG/ML 1ML (SYR OR VIAL) IVP ONE (13:30)
--- NOTE | 2021-10-07 13:42 | Diagnostic Imaging Report ---
CHEST 1 VIEW, AP/PA ONLY INDICATION: Status post Port-A-Cath placement. COMPARISON: 06/14/2013. FINDINGS: Low lung volumes. Increased bibasilar pulmonary opacities. No pleural effusion or pneumothorax. Right IJ Port-A-Cath has tip terminating in the lower SVC near the superior cavoatrial junction. Stable heart size. IMPRESSION: 1. No pneumothorax status post Port-A-Cath placement. 2. Increased basilar opacities are most likely on the basis of atelectasis. Dictated by: Dictated on workstation # [id number]
--- NOTE | 2021-10-07 13:52 | Diagnostic Imaging Report ---
INDICATION: Fluoroscopy for port placement. Fluoroscopy was provided during port placement. 25 seconds of fluoroscopic time was utilized. A single image was obtained demonstrating a right chest wall port. IMPRESSION: Fluoroscopy during port placement. Dictated by: Dictated on workstation # [id number]
== END 2021-10-07 14:25 | disposition home or self-care (01) ==
LOC: SDC 09:59
PROVIDERS: ATTEND Surgery
DX: C25.9 Malignant neoplasm of pancreas, unspecified (principal); I87.2 Venous insufficiency (chronic) (peripheral); Z87.891 Personal history of nicotine dependence
CPT/HCPCS: 36561; 71045; 76000; C1788

== ENCOUNTER 2021-10-20 10:58 | Emergency (ER) | payer BC ==
[~2021-10-20] VITALS: Ht 157.5 cm; Wt 62.3 kg
[~2021-10-20 10:58] MED LIST changes: +CLN.1T PO; +LIPA1CAP67 PO
[2021-10-20] MEDS ORDERED: ONDANSETRON 4 MG/2 ML (SDV) Z0FRAN IVP ONE ×2 (11:15→14:00)
--- NOTE | 2021-10-20 11:18 | ED General ---
General Chief Complaint: Dizziness/Syncope Stated Complaint: DIZZY - AMS Source of Information: Patient Exam Limitations: No Limitations History of Present Illness Date Seen by Provider: Oct 20, 2021 Time Seen by Provider: 11:15 Initial Comments To ER by private vehicle accompanied by family () with reports of weakness confusion unsteady gait. She was recently diagnosed with pancreatic cancer with liver metastasis. She had a port placed here by Dr. Guzman. She had her first dose of chemotherapy last Wednesday with Dr. Coreas. She is scheduled for an outpatient MRI of the abdomen today. She also reports increased abdominal distention and discomfort rated pain at 6 out of 10. She does have some nausea. She had biopsy done by Dr. Tu Del Valle in [facility] at the end of September. Timing/Duration: 1-2 Days Severity: Moderate Associated Systoms: Denies Symptoms Allergies and Home Medications Allergies Coded Allergies: No Known Drug Allergies (Verified , 06/16/17) Patient Home Medication List Home Medication List Reviewed: Yes Clonidine HCl (Clonidine HCl) 0.1 Mg Tablet, 0.1 MG PO BID, (Reported) Entered as Reported by: ALBERTO JENSEN on 10/07/21 1056 Hydrocodone Bit/Acetaminophen (HYDROcodone/APAP 5 MG/325 MG TAB) 1 Tab Tab, 1 TAB PO Q6H Prescribed by: MANUEL MARCANO on 10/07/20 1151 Levothyroxine Sodium (Levothyroxine Sodium) 100 Mcg Tablet, 100 MCG PO DAILY, (Reported) Entered as Reported by: RAMON SOTO on 06/16/17 0922 Lipase/Protease/Amylase (Paulo Reagan 36,000 Units Capsule) 36K-114K Capsule., 1 EACH PO, (Reported) Entered as Reported by: ALBERTO JENSEN on 10/07/21 1056 Pravastatin Sodium (Pravastatin Sodium) 20 Mg Tablet, 20 MG PO DAILY, (Reported) Entered as Reported by: RAMON SOTO on 07/27/16 0909 Review of Systems Review of Systems Constitutional: see HPI EENTM: see HPI Respiratory: no symptoms reported Cardiovascular: no symptoms reported Gastrointestinal: abdominal pain Genitourinary: no symptoms reported Musculoskeletal: no symptoms reported Skin: no symptoms reported Psychiatric/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: No Symptoms Reported Hematologic/Lymphatic: No Symptoms Reported Past Ouxibhy-Gifqta-Kkuafo Hx Immunizations Up To Date Tetanus Booster (TDap): Unknown First/Initial COVID19 Vaccinat: 2020 Second COVID19 Vaccination Reji: 2020 Seasonal Allergies Seasonal Allergies: No Past Medical History Surgery/Hospitalization HX: CYST ON PANCREASE, GB, HYST, COLONOSCOPY, Surgeries: Yes (LEFT KNEE SCOPE, pancreatic cyst) Gallbladder, Hysterectomy Respiratory: No Currently Using CPAP: No Currently Using BIPAP: No Cardiac: Yes High Cholesterol 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: Yes Headaches /Migraines Reproductive Disorders: No Female 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 Sexually Transmitted Disease: No HIV/AIDS: No Genitourinary: No Gastrointestinal: Yes (Pancreatic cyst) Pancreatitis, Polyps Musculoskeletal: No Endocrine: Yes Hypothyroidsim HEENT: Yes Loss of Vision: Bilateral Hearing Impairment: Denies Cancer: Yes Liver, Pancreatic Did You Recieve Any Treatments: No Psychosocial: No Integumentary: No Blood Disorders: No Adverse Reaction/Blood Tranf: No (N/A) Physical Exam Vital Signs Vital Signs - First Documented 10/20/21 11:05 Temp 36.5 Pulse 80 Resp 18 B/P (MAP) 119/87 (98) Pulse Ox 95 O2 Delivery Nasal Cannula O2 Flow Rate 2.00 Capillary Refill : Height, Weight, BMI Height: 5'1.00" Weight: 165lbs. 0.0oz. 74.925293dx; 26.67 BMI Method:Stated General Appearance: No Apparent Distress, WD/WN, Thin, Other (Abdominal distention. Flat affect. Somnolent. Markedly jaundiced.) Eyes: Bilateral Eye PERRL, Bilateral Eye EOMI, Bilateral Eye Scleral Icterus Neck: Full Range of Motion, Normal Inspection Respiratory: No Accessory Muscle Use, No Respiratory Distress Cardiovascular: Regular Rate, Rhythm, Normal Peripheral Pulses Gastrointestinal: Non Tender, Soft Extremity: Normal Capillary Refill, Normal Inspection Neurologic/Psychiatric: Alert, Oriented x3 Skin: Normal Color, Warm/Dry Progress/Results/Core Measures Suspected Sepsis SIRS Temperature: Pulse: Respiratory Rate: Laboratory Tests 10/20/21 12:01: White Blood Count 6.2 Blood Pressure / Mean: Laboratory Tests 10/20/21 12:01: Creatinine 0.97, Platelet Count 70L, Total Bilirubin 36.2*H 10/20/21 12:49: INR Comment 1.8H Results/Orders Lab Results Laboratory Tests Test 10/20/21 12:01 10/20/21 12:49 10/20/21 14:12 Range/Units White Blood Count 6.2 4.3-11.0 10^3/uL Red Blood Count 3.40 L 3.80-5.11 10^6/uL Hemoglobin 11.0 L 11.5-16.0 g/dL Hematocrit 31 L 35-52 % Mean Corpuscular Volume 90 80-99 fL Mean Corpuscular Hemoglobin 32 25-34 pg Mean Corpuscular Hemoglobin Concent 36 32-36 g/dL Red Cell Distribution Width 21.5 H 10.0-14.5 % Platelet Count 70 L 130-400 10^3/uL Mean Platelet Volume 10.4 9.0-12.2 fL Immature Granulocyte % (Auto) 1 % Neutrophils (%) (Auto) 83 H 42-75 % Lymphocytes (%) (Auto) 10 L 12-44 % Monocytes (%) (Auto) 5 0-12 % Eosinophils (%) (Auto) 1 0-10 % Basophils (%) (Auto) 1 0-10 % Neutrophils # (Auto) 5.1 1.8-7.8 10^3/uL Lymphocytes # (Auto) 0.6 L 1.0-4.0 10^3/uL Monocytes # (Auto) 0.3 0.0-1.0 10^3/uL Eosinophils # (Auto) 0.1 0.0-0.3 10^3/uL Basophils # (Auto) 0.0 0.0-0.1 10^3/uL Immature Granulocyte # (Auto) 0.1 0.0-0.1 10^3/uL Percent Immature Platelet Fraction 7.8 H 0.0-7.6 % Sodium Level 129 L 135-145 MMOL/L Potassium Level 3.5 L 3.6-5.0 MMOL/L Chloride Level 96 L 98-107 MMOL/L Carbon Dioxide Level 22 21-32 MMOL/L Anion Gap 11 5-14 MMOL/L Blood Urea Nitrogen 18 7-18 MG/DL Creatinine 0.97 0.60-1.30 MG/DL Estimat Glomerular Filtration Rate 65 BUN/Creatinine Ratio 19 Glucose Level 111 H 70-105 MG/DL Calcium Level 8.5 8.5-10.1 MG/DL Corrected Calcium 9.6 8.5-10.1 MG/DL Total Bilirubin 36.2 *H 0.1-1.0 MG/DL Aspartate Amino Transf (AST/SGOT) 286 H 5-34 U/L Alanine Aminotransferase (ALT/SGPT) 195 H 0-55 U/L Alkaline Phosphatase 1436 H 40-136 U/L Ammonia 99 H 11-32 UMOL/L Total Protein 5.5 L 6.4-8.2 GM/DL Albumin 2.6 L 3.2-4.5 GM/DL Lipase 7 L 8-78 U/L Prothrombin Time 21.2 H 12.2-14.7 SEC INR Comment 1.8 H 0.8-1.4 SARS-CoV-2 RNA (RT-PCR) Not Detected Not Detecte My Orders Orders - JACKSON KELLER APRN Cbc With Automated Diff (10/20/21 11:14) Comprehensive Metabolic Panel (10/20/21 11:14) Protime With Inr (10/20/21 11:14) Chest 1 View, Ap/Pa Only (10/20/21 11:14) Ct Head Wo (10/20/21 11:14) Ed Iv/Invasive Line Start (10/20/21 11:14) Lipase (10/20/21 11:14) Ammonia (10/20/21 11:14) Ondansetron Injection (Zofran Injectio (10/20/21 11:15) Lactulose Oral Solution (Enulose Oral So (10/20/21 13:15) Ns Iv 1000 Ml (Sodium Chloride 0.9%) (10/20/21 13:15) Covid 19 Inhouse Test (10/20/21 13:23) Us Gallbladder 03102 (10/20/21 13:25) Lactulose Oral Solution (Enulose Oral So (10/20/21 14:00) Ondansetron Injection (Zofran Injectio (10/20/21 14:00) Fentanyl Inj (Sublimaze Injection) (10/20/21 16:15) Medications Given in ED Current Medications Medications Dose Ordered Sig/Claudia Route Start Time Stop Time Status Last Admin Dose Admin Fentanyl Citrate 50 mcg ONCE ONCE IVP 10/20/21 16:15 10/20/21 16:16 DC 10/20/21 16:09 50 MCG Lactulose 20 gm ONCE ONCE PO 10/20/21 14:00 10/20/21 14:01 DC 10/20/21 14:05 20 GM Ondansetron HCl 4 mg ONCE ONCE IVP 10/20/21 11:15 10/20/21 11:16 DC 10/20/21 13:59 4 MG Vital Signs/I&O 10/20/21 11:05 Temp 36.5 Pulse 80 Resp 18 B/P (MAP) 119/87 (98) Pulse Ox 95 O2 Delivery Nasal Cannula O2 Flow Rate 2.00 Capillary Refill : Departure Communication (Admissions) 1316-spoke with [facility] do not have any beds. Spoke with [facility] in [place] they do not have any beds. I will call [facility] for transfer. I did speak with Dr. Guzman from surgery here, this needs transfer for evaluation for biliary stent placement. [id number]-Dr. Benitez from the [facility] has accepted the patient for transfer. They will call back with a room assignment. Patient and family agreeable with this plan. Family Conversation NAME: TAYLOR ALEXANDRE MED REC#: [id number] PT STATUS: REG ER : 1955 PHYSICIAN: JACKSON KELLER CONSULTING HR PROFESSIONAL ADMIT DATE: 10/20/21/ER Signed Date of Exam:10/20/21 US GALLBLADDER [id number] EXAMINATION: US Abdomen limited. TECHNIQUE: Multiple real-time grayscale images were obtained over the right upper quadrant in various projections. REASON FOR EXAM: Biliary obstruction. History of liver cancer. COMPARISON: 09/24/2021. 06/27/2016. FINDINGS: The liver has a nodular contour with heterogeneous echogenicity. Previously visualized intramural lesions in the liver are not well appreciated on this exam. No intrahepatic biliary dilatation is present. The common bile duct is not dilated and measures 6 mm. The main portal vein is hepatopedal. Moderate to large volume of ascites is seen in all 4 quadrants. The gallbladder is surgically absent. The pancreas is not well visualized due to overlying bowel gas. The visualized portions of the IVC and aorta appear normal. The right kidney measures approximately 12.1 cm in length and has a normal appearance. IMPRESSION: 1. Moderate to large volume of ascites in the abdomen and pelvis. 2. Cirrhotic morphology of the liver. 3. Widespread lesions throughout the liver are not well appreciated on this exam. Please see the prior dictated report on 09/24/2021 for additional findings. Dictated by: Dictated on workstation # [id number] Dict: 10/20/21 1412 Trans: 10/20/[address] [facility] [id number] Interpreted by: YEN SHARPE DO Electronically signed by: YEN SHARPE DO 10/20/21 1420 NAME: TAYLOR ALEXANDRE Zacarias MED REC#: [id number] PT STATUS: REG ER : 1955 PHYSICIAN: JACKSON KELLER APRN ADMIT DATE: 10/20/21/ER Draft Date of Exam:10/20/21 CHEST 1 VIEW, AP/PA ONLY EXAMINATION: Chest, one view. HISTORY: Weakness. Altered mental status. History of pancreatic cancer. COMPARISON: 10/07/2021. FINDINGS: A right port is visualized with the tip overlying the mid SVC. Patchy opacities are seen in the right lung base, similar to the prior exam. No new focal consolidation. No pleural effusion or pneumothorax. Stable cardiac silhouette. IMPRESSION: 1. Patchy right basilar opacities, suggestive of atelectasis. 2. Stable right port. Dictated on workstation # [id number] Dict: 10/20/21 1154 Trans: 10/20/21 1156 [id number] Interpreted by: YEN SHARPE DO Electronically signed by: NAME: TAYLOR ALEXANDRE Zacarias MED REC#: [id number] PT STATUS: REG ER : 1955 PHYSICIAN: JACKSON KELLER APRN ADMIT DATE: 10/20/21/ER Draft Date of Exam:10/20/21 CT HEAD WO INDICATION: Dizziness. Altered mental status. History of pancreatic cancer. TECHNIQUE: Routine non contrast-enhanced axial images were obtained from the skull base to the vertex. Auto Exposure Controls were utilized during the CT exam to meet ALARA standards for radiation dose reduction COMPARISON: None. FINDINGS: The ventricles and cortical sulci are diffusely prominent, compatible with age-related volume loss. There are confluent areas of abnormal, low attenuation in the periventricular white matter. This is consistent with small vessel ischemic changes; age-indeterminate. There is no prior study available for comparison. There is no midline shift or mass-effect. No acute intra-axial hemorrhage is seen. There are no abnormal areas of increased or decreased density to suggest acute hemorrhage or edema. No extra-axial masses or collections are present. The bony calvarium is intact. The visualized paranasal sinuses are unremarkable. The mastoid air cells are clear. IMPRESSION: 1. No acute intracranial abnormality. No CT evidence of mass, acute infarct or intracranial hemorrhage. 2. Small vessel ischemic changes in the periventricular and subcortical white matter; likely chronic. Dictated on workstation # [id number] Dict: 10/20/21 1144 Trans: 10/20/21 1152 [id number] Interpreted by: CHIQUIS JAIN MD Electronically signed by: Impression Primary Impression: Hepatic encephalopathy Additional Impression: Biliary obstruction due to cancer Disposition: 02 XFER SHT-TRM HOSP Condition: Stable Transfer Transfer Reason: Exceeds level of care Time Spoke to Accepting Phy: 13:37 Departure-Patient Inst. Referrals: KARINA MORGAN MD (PCP/Family) Primary Care Physician JACKSON KELLER CONSULTING HR PROFESSIONAL Oct 20, 2021 11:18
--- NOTE | 2021-10-20 11:53 | Diagnostic Imaging Report ---
INDICATION: Dizziness. Altered mental status. History of pancreatic cancer. TECHNIQUE: Routine non contrast-enhanced axial images were obtained from the skull base to the vertex. Auto Exposure Controls were utilized during the CT exam to meet ALARA standards for radiation dose reduction COMPARISON: None. FINDINGS: The ventricles and cortical sulci are diffusely prominent, compatible with age-related volume loss. There are confluent areas of abnormal, low attenuation in the periventricular white matter. This is consistent with small vessel ischemic changes; age-indeterminate. There is no prior study available for comparison. There is no midline shift or mass-effect. No acute intra-axial hemorrhage is seen. There are no abnormal areas of increased or decreased density to suggest acute hemorrhage or edema. No extra-axial masses or collections are present. The bony calvarium is intact. The visualized paranasal sinuses are unremarkable. The mastoid air cells are clear. IMPRESSION: 1. No acute intracranial abnormality. No CT evidence of mass, acute infarct or intracranial hemorrhage. 2. Small vessel ischemic changes in the periventricular and subcortical white matter; likely chronic. Dictated by: Dictated on workstation # [id number]
--- NOTE | 2021-10-20 11:56 | Diagnostic Imaging Report ---
EXAMINATION: Chest, one view. HISTORY: Weakness. Altered mental status. History of pancreatic cancer. COMPARISON: 10/07/2021. FINDINGS: A right port is visualized with the tip overlying the mid SVC. Patchy opacities are seen in the right lung base, similar to the prior exam. No new focal consolidation. No pleural effusion or pneumothorax. Stable cardiac silhouette. IMPRESSION: 1. Patchy right basilar opacities, suggestive of atelectasis. 2. Stable right port. Dictated by: Dictated on workstation # [id number]
[2021-10-20 12:10] LABS: NEUTROPHILS # (AUTO) 5.1 10^3/uL (1.8-7.8)
[2021-10-20 12:12] LABS: BASOPHILS % (AUTO) 1 % (0-10); EOSINOPHILS # (AUTO) 0.1 10^3/uL (0.0-0.3); EOSINOPHILS % (AUTO) 1 % (0-10); HEMATOCRIT 31 % (35-52); LYMPHOCYTES # (AUTO) 0.6 10^3/uL (1.0-4.0); LYMPHOCYTES % (AUTO) 10 % (12-44); MEAN CORPUSCULAR HEMOGLOBIN 32 pg (25-34); MEAN CORPUSCULAR HGB CONC 36 g/dL (32-36); MEAN CORPUSCULAR VOLUME 90 fL (80-99); MEAN PLATELET VOLUME 10.4 fL (9.0-12.2); MONOCYTES # (AUTO) 0.3 10^3/uL (0.0-1.0); MONOCYTES % (AUTO) 5 % (0-12); NEUTROPHILS % (AUTO) 83 % (42-75); WHITE BLOOD COUNT 6.2 10^3/uL (4.3-11.0)
[2021-10-20 12:19] LABS: ALBUMIN 2.6 GM/DL (3.2-4.5); POTASSIUM 3.5 MMOL/L (3.6-5.0)
[2021-10-20 12:20] LABS: CALCIUM 8.5 MG/DL (8.5-10.1)
[2021-10-20 12:21] LABS: TOTAL PROTEIN 5.5 GM/DL (6.4-8.2)
[2021-10-20 12:25] LABS: CREATININE SERUM 0.97 MG/DL (0.60-1.30)
[2021-10-20 12:26] LABS: PLATELET COUNT 70 10^3/uL (130-400)
[2021-10-20 13:02] LABS: BILIRUBIN,TOTAL 36.2 MG/DL (0.1-1.0)
[2021-10-20 13:14] LABS: INR 1.8 (0.8-1.4); PROTHROMBIN TIME PATIENT 21.2 SEC (12.2-14.7)
[2021-10-20] MEDS ORDERED: NS IV 1000 ML 1,000 ML IV SCH (13:15)
[2021-10-20] MEDS ORDERED: LACTULOSE SYRUP 10GM/15ML (ENULOSE) 30ML UDC PO ONE ×2 (13:15→14:00)
--- NOTE | 2021-10-20 14:18 | Diagnostic Imaging Report ---
EXAMINATION: US Abdomen limited. TECHNIQUE: Multiple real-time grayscale images were obtained over the right upper quadrant in various projections. REASON FOR EXAM: Biliary obstruction. History of liver cancer. COMPARISON: 09/24/2021. 06/27/2016. FINDINGS: The liver has a nodular contour with heterogeneous echogenicity. Previously visualized intramural lesions in the liver are not well appreciated on this exam. No intrahepatic biliary dilatation is present. The common bile duct is not dilated and measures 6 mm. The main portal vein is hepatopedal. Moderate to large volume of ascites is seen in all 4 quadrants. The gallbladder is surgically absent. The pancreas is not well visualized due to overlying bowel gas. The visualized portions of the IVC and aorta appear normal. The right kidney measures approximately 12.1 cm in length and has a normal appearance. IMPRESSION: 1. Moderate to large volume of ascites in the abdomen and pelvis. 2. Cirrhotic morphology of the liver. 3. Widespread lesions throughout the liver are not well appreciated on this exam. Please see the prior dictated report on 09/24/2021 for additional findings. Dictated by: Dictated on workstation # [id number]
[2021-10-20] MEDS ORDERED: fentaNYL INJ 100 MCG/2 ML AMP IVP ONE (16:15)
[2021-10-20 17:01] VITALS: BP 119/88
== END 2021-10-20 17:01 ==
LOC: EDUNIT# 10:58 → ER 10:59
DX: K72.90 Hepatic failure, unspecified without coma (principal); K83.1 Obstruction of bile duct; Z90.49 Acquired absence of other specified parts of digestive tract; Z20.822 Contact with and (suspected) exposure to COVID-19
CPT/HCPCS: 36415; 70450; 71045; 76705; 80053; 82140; 83690; 85025; 85610; 87636